=== PATIENT | female | born 1960 | race Caucasian/White ===

== ENCOUNTER 2018-02-20 06:40 | Day surgery (SDC) | payer OTHER ==
[2018-02-16 10:30] VITALS: BMI 24.0
[~2018-02-20 06:40] MED LIST: LACTATED RINGERS 1,000 ML IV SCH; LIDOCAINE 1% 20 ML VIAL (10MG/ML) FOR IV START INTRADERMA PRN
[2018-02-20 07:19] VITALS: TEMP 97.8
[2018-02-20] MEDS ORDERED: LACTATED RINGERS 1,000 ML IV ONE (07:21)
[2018-02-20] MEDS ORDERED: PROPOFOL 10 MG/ML 20 ML VIAL IV ONE (07:49)
[2018-02-20] MEDS ORDERED: LIDOCAINE 1% INJ 10MG/ML (20 ML MDV) ONE (07:49)
--- NOTE | 2018-02-20 07:56 | P.GSHP ---
History of Present Illness H&P Date: 02/20/18 Chief Complaint: Screening colonoscopy This is a 57-year-old female who presents today for screening colonoscopy. Her last colonoscopy was about 10 years ago. She denies a significant GI complaints Past Medical History Past Medical History: Hyperlipidemia, Hypertension Additional Past Medical History / Comment(s): migraines, "pre hypertension", varicose veins, osteoporosis, History of Any Multi-Drug Resistant Organisms: None Reported Past Surgical History: Section Additional Past Surgical History / Comment(s): varicose vein surgery left leg Past Anesthesia/Blood Transfusion Reactions: Motion Sickness Smoking Status: Former smoker - Past Family History Father Family Medical History: Cancer Medications and Allergies Home Medications Medication Instructions Recorded Confirmed Type Alendronate Sodium [Fosamax] 70 mg PO TH 01/02/18 02/16/18 History Aspirin [Adult Low Dose Aspirin EC] 81 mg PO DAILY 01/02/18 02/16/18 History Calcium Carbonate [Calcium] 900 mg PO BID 01/02/18 02/16/18 History Cholecalciferol [Vitamin D3] 2,000 unit PO DAILY 01/02/18 02/16/18 History Nadolol [Corgard] 20 mg PO HS 01/02/18 02/16/18 History Rizatriptan Odt [Maxalt Circulation Worker] 10 mg PO DIRECTED PRN 01/02/18 02/16/18 History Simvastatin 40 mg PO HS 01/02/18 02/16/18 History Allergies Allergy/AdvReac Type Severity Reaction Status Date / Time No Known Allergies Allergy Verified 02/16/18 10:26 Surgical - Exam Vital Signs Temp Pulse Resp BP Pulse Ox 97.8 F 67 18 156/97 99 02/20/18 07:18 02/20/18 07:18 02/20/18 07:18 02/20/18 07:18 02/20/18 07:18 - General well developed, no distress - Eyes PERRL - ENT normal pinna - Neck no masses - Respiratory normal expansion - Cardiovascular Rhythm: regular - Abdomen Abdomen: soft, non tender Assessment and Plan Plan: Perform screening colonoscopy.
--- NOTE | 2018-02-20 08:12 | P.OP ---
Date of Procedure: 02/20/18 Preoperative Diagnosis: Screening colonoscopy Postoperative Diagnosis: Normal colon Procedure(s) Performed: Colonoscopy Anesthesia: MAC Surgeon: Rick Ortiz Pathology: none sent Condition: stable Disposition: PACU Description of Procedure: PROCEDURE: The patient was placed on the endoscopy table in the lateral position. Digital rectal examination was performed which revealed no abnormalities. yun. Flexible colonoscope was then placed in the patient's anus and passed throughout the entire colon. The ileocecal valve was visualized. The cecum, ascending, transverse, descending and sigmoid colon were normal. The rectum was normal as well. There were no masses, polyps or diverticula noted in the entire colon. SUMMARY OF FINDINGS: Normal colonoscopy.
[2018-02-20 09:00] VITALS: BP 137/79; PULSE 57; RESP 18
== END 2018-02-20 09:44 | disposition home or self-care (01) ==
LOC: ORWHC2ENDO 06:40
PROVIDERS: ATTEND Surgery
DX: Z12.11 Encounter for screening for malignant neoplasm of colon (principal); I10 Essential (primary) hypertension; E78.5 Hyperlipidemia, unspecified; G43.909 Migraine, unspecified, not intractable, without status migrainosus; M81.0 Age-related osteoporosis without current pathological fracture; Z79.82 Long term (current) use of aspirin; Z79.899 Other long term (current) drug therapy; Z87.891 Personal history of nicotine dependence
CPT/HCPCS: J2001; J2704; G0121; 45378

== ENCOUNTER 2018-04-27 07:50 | Day surgery (SDC) | payer OTHER ==
[2018-04-25 17:39] VITALS: BMI 23.3
[~2018-04-27 07:50] MED LIST changes: +HYDROmorphone 0.5 MG/0.5 ML SYRINGE IVP PRN; -LIDOCAINE 1% 20 ML VIAL (10MG/ML) FOR IV START INTRADERMA PRN
[2018-04-27] MEDS ORDERED: LIDOCAINE 1% 20 ML VIAL (10MG/ML) FOR IV START INTRADERMA ONE (08:15)
[2018-04-27 08:20] VITALS: RESP 16; TEMP 98.2
[2018-04-27] MEDS ORDERED: LIDOCAINE 1% INJ 10MG/ML (20 ML MDV) ONE (09:14)
[2018-04-27] MEDS ORDERED: PROPOFOL 10 MG/ML 20 ML VIAL IV ONE (09:14)
[2018-04-27] MEDS ORDERED: GLUCAGON 1 MG/ML VIAL ONE (09:14)
--- NOTE | 2018-04-27 09:15 | P.GSHP ---
History of Present Illness H&P Date: 04/27/18 Chief Complaint: GI bleed This a 58-year-old female who presents today for colonoscopy. Patient had issues with intermittent rectal bleeding. Patient denies any blood yesterday with her prep. Past Medical History Past Medical History: Hyperlipidemia, Hypertension Additional Past Medical History / Comment(s): migraines, varicose veins, osteoporosis, States blood in stool History of Any Multi-Drug Resistant Organisms: None Reported Past Surgical History: Section Additional Past Surgical History / Comment(s): varicose vein surgery left leg, colonoscopy Past Anesthesia/Blood Transfusion Reactions: No Reported Reaction Past Psychological History: No Psychological Hx Reported Smoking Status: Former smoker Past Alcohol Use History: Rare Additional Past Alcohol Use History / Comment(s): quit smoking 2000, smoked for 25 yrs, 1 1/2 PPD Past Drug Use History: None Reported - Past Family History Father Family Medical History: Cancer Additional Family Medical History / Comment(s): lung cancer Medications and Allergies Home Medications Medication Instructions Recorded Confirmed Type Alendronate Sodium [Fosamax] 70 mg PO FR 01/02/18 04/27/18 History Aspirin [Adult Low Dose Aspirin EC] 81 mg PO DAILY 01/02/18 04/27/18 History Cholecalciferol [Vitamin D3] 2,000 unit PO DAILY 01/02/18 04/27/18 History Rizatriptan Odt [Maxalt Job Coach] 10 mg PO DIRECTED PRN 01/02/18 04/27/18 History Simvastatin 40 mg PO HS 01/02/18 04/27/18 History Bisoprolol-Hctz 5-6.25 mg [Ziac 1 each PO DAILY 04/25/18 04/27/18 History 5-6.25] Calcium Carbonate [Calcium] 1,500 mg PO DAILY 04/25/18 04/27/18 History Allergies Allergy/AdvReac Type Severity Reaction Status Date / Time No Known Allergies Allergy Verified 04/27/18 08:09 Surgical - Exam Vital Signs Temp Pulse Resp BP Pulse Ox 98.2 F 78 16 124/72 97 04/27/18 08:19 04/27/18 08:19 04/27/18 08:19 04/27/18 08:19 04/27/18 08:19 - General well developed, well nourished, no distress - Eyes PERRL - ENT normal pinna - Neck no masses - Respiratory normal expansion - Cardiovascular Rhythm: regular - Abdomen Abdomen: soft, non tender Assessment and Plan Assessment: GI bleed. We'll perform colonoscopy.
--- NOTE | 2018-04-27 09:47 | P.OP ---
Date of Procedure: 04/27/18 Preoperative Diagnosis: GI bleed Postoperative Diagnosis: Internal hemorrhoids Rectal biopsy pathology pending Procedure(s) Performed: Colonoscopy Anesthesia: MAC Surgeon: Rick Ortiz Pathology: other (Rectum) Condition: stable Disposition: PACU Description of Procedure: The patient's placed on the endoscopy table in the lateral position. She received IV sedation. Digital rectal exam was performed which revealed a few internal hemorrhoids. The flexible colonoscope was then placed patient anus passed throughout the entire colon. The ileocecal valve was visualized. The colon was in spasm. Glucagon was given. The cecum was visualized. Cecum appeared normal. The ascending colon, transverse colon and descending colon appeared noremal. Scope was then brought back the sigmoid colon this appeared normal. The scope was then brought back the rectum and a biopsies performed. The scope was then retroflexed and there were some internal hemorrhoids noted. The scope was withdrawn for patient. There was no evidence of any active GI bleed in the colon. There is no bright red blood or dark blood in the colon. It was thought that the patient's intermittent rectal bleeding may be due to internal hemorrhoids.
[2018-04-27 09:55] VITALS: BP 120/68; PULSE 80
== END 2018-04-27 10:37 | disposition home or self-care (01) ==
LOC: ORWHC2ENDO 07:50
PROVIDERS: ATTEND Surgery
DX: K92.2 Gastrointestinal hemorrhage, unspecified (principal); E78.5 Hyperlipidemia, unspecified; I10 Essential (primary) hypertension; K64.8 Other hemorrhoids; M81.0 Age-related osteoporosis without current pathological fracture; Z79.82 Long term (current) use of aspirin; Z87.891 Personal history of nicotine dependence; Z80.1 Family history of malignant neoplasm of trachea, bronchus and lung; Z79.899 Other long term (current) drug therapy
CPT/HCPCS: 88305; 45380; J1610; J2001; J2704

== ENCOUNTER → 2018-07-05 | Outpatient (CLI) | payer OTHER ==
--- NOTE | 2018-07-06 17:03 | MR ---
EXAMINATION TYPE: MR knee RT wo con DATE OF EXAM: 07/05/2018 COMPARISON: Outside radiographs 06/20/2018 HISTORY: 58 year-old female right knee pain TECHNIQUE: Multiplanar, multisequence imaging of the right knee is performed without IV contrast. FINDINGS: The ACL, PCL, and and MCL are intact. MCL complex remains intact. There is degenerative signal within the posterior horn and body of the medial meniscus. Signal extend s to contact the tibial surface at the junction of the posterior horn and body at least on one slice, series 301 sagittal image 8. There is mild diffuse cartilage thinning within the medial compartment with focal areas of superficial cartilage irregularity. There is a complex degenerative tear involving the posterior horn and body of the lateral meniscus. T ear extends to the junction of the anterior horn. Some displaced meniscal fragment is present along t he superior gutter, series 401 coronal image 16. There is severe loss of articular cartilage along th e tibial articular surface and moderate irregular cartilage loss along the femoral articular surface. Subchondral sclerosis and marginal spurring is demonstrated with cystic change. Moderate irregular cartilage loss throughout the patellofemoral compartment. There is a 6 mm anterior loose body. Extensor mechanism remains intact. There is a focus of metal artifact within the patella that could b e the sequela of prior surgery or trauma. No obvious metal is seen on the patient's outside radiograp hs. There is a moderate knee joint effusion with mild chronic synovitis in the leaking, mildly complex, m oderate sized Torres's cyst measuring 6.0 x 3.9 cm. Normal popliteal artery anatomy. Mild diffuse muscular atrophy. No suspicious bone marrow placement. IMPRESSION: 1. Moderate to severe lateral compartmental osteoarthrosis with a diffusely degenerative and torn pos terior horn and body of the lateral meniscus. Some displaced meniscal fragment is present along the s uperior gutter. 2. Degenerative signal within the medial meniscus with possible subtle tear at the junction of the po sterior horn and body. Mild overall degenerative change in the medial compartment. 3. Moderate overall patellofemoral compartment osteoarthrosis. 4. Moderate knee joint effusion with mild chronic synovitis. Moderate-sized leaking Torres's cyst is a lso present measuring up to 6.0 cm.
== END | disposition home or self-care (01) ==
LOC: RADMRIMAIN 11:11
PROVIDERS: ATTEND Orthopaedic Surgery
DX: S83.281A Other tear of lateral meniscus, current injury, right knee, initial encounter (principal); M17.11 Unilateral primary osteoarthritis, right knee; M65.88 Other synovitis and tenosynovitis, other site

== ENCOUNTER → 2018-07-13 | Outpatient (CLI) | payer OTHER ==
[2018-07-13 12:39] LABS: Potassium 4.4 mmol/L (3.5-5.1)
[2018-07-13 13:09] LABS: HCT 43.2 % (34.0-46.0); HGB 13.9 gm/dL (11.4-16.0); MCH 29.9 pg (25.0-35.0); MCHC 32.1 g/dL (31.0-37.0); MCV 93.1 fL (80.0-100.0); Mean Platelet Volume 7.6; Platelet Count 222 k/uL (150-450); RBC 4.64 m/uL (3.80-5.40); RDW 13.4 % (11.5-15.5); WBC 5.9 k/uL (3.8-10.6)
[2018-07-13 13:54] LABS: Eosinophils # (M) 0.24 k/uL (0-0.7); Lymphocytes # (M) 1.36 k/uL (1.0-4.8); Monocytes # (M) 0.41 k/uL (0-1.0); Neutrophils # (M) 3.89 k/uL (1.3-7.7); Neutrophils % (M) 66 %; Nucleated Red Blood Cells 0 /100 WBC (0-0); Total Cells Counted 100
== END | disposition home or self-care (01) ==
LOC: LABPAT 11:50
PROVIDERS: ATTEND Orthopaedic Surgery
DX: Z01.818 Encounter for other preprocedural examination (principal); M23.91 Unspecified internal derangement of right knee; Z01.812 Encounter for preprocedural laboratory examination
CPT/HCPCS: 80051; 85025; 93005

== ENCOUNTER 2018-08-02 08:45 | Day surgery (SDC) | payer OTHER ==
--- NOTE | 2018-08-01 13:40 | HP ---
HISTORY AND PHYSICAL Surgery is 08/02/2018. Edel Bates is a 58-year-old patient seen with progressive right knee pain. We discussed options. She elected to proceed with arthroscopy. Consent was obtained. PAST MEDICAL HISTORY: Her past medical history is hypertension, hyperlipidemia. PAST SURGICAL HISTORY: section. DAILY MEDICATIONS: 1. Bisoprolol/hydrochlorothiazide. 2. Simvastatin. ALLERGIES: Allergies are none. SOCIAL HISTORY: She denies current tobacco use. PHYSICAL EXAMINATION: Physical evaluation of the right knee: Her range of motion is -2 to 115 degrees. Mild to moderate effusion. Tenderness along the medial and lateral joint lines. Positive medial Merle's. Positive lateral Merle's. Crepitus medial and patellofemoral compartments. Ligaments stable. Hip rotation without pain. Distal neurovascular exam intact. Radiographs of the right knee revealed osteoarthritic changes. Right knee MRI revealed lateral meniscal tear and osteoarthritic changes. IMPRESSION: 1. Internal derangement right knee with lateral meniscal tear. 2. Hypertension. 3. Hyperlipidemia. PLAN: Right knee arthroscopy with partial meniscectomy and debridement. MMODL / IJN: [id number] /
[~2018-08-02 08:45] MED LIST changes: +DEXAMETHASONE SOD PHOSPHATE 10 MG/ML 1 ML VIAL IV ONE; -HYDROmorphone 0.5 MG/0.5 ML SYRINGE IVP PRN; +LIDOCAINE 1% 20 ML VIAL (10MG/ML) FOR IV START INTRADERMA PRN; +MIDAZOLAM 2 MG/2 ML VIAL IV PRN; +ONDANSETRON 4 MG/2 ML VIAL IVP ONE; +SCOPOLAMINE 1.5MG/72HR PATCH TRANSDERM ONE
[2018-08-02] MEDS ORDERED: FAMOTIDINE 20 MG/2 ML VIAL IVP ONE (09:23)
[2018-08-02] MEDS ORDERED: MIDAZOLAM 2 MG/2 ML VIAL ONE (09:44)
[2018-08-02] MEDS ORDERED: fentaNYL (PF) 50 MCG/ML 2 ML AMP ONE (09:44)
[2018-08-02] MEDS ORDERED: SUCCINYLCHOLINE CHLORIDE 100 MG/5 ML SYR IV ONE (09:44)
[2018-08-02] MEDS ORDERED: LIDOCAINE 1% INJ 10MG/ML (20 ML MDV) ONE (09:44)
[2018-08-02] MEDS ORDERED: PROPOFOL 10 MG/ML 20 ML VIAL IV ONE (09:44)
[2018-08-02] MEDS ORDERED: BUPIVACAIN-EPI 0.5%-1:200,000 30 ML VIAL INTRAARTIC ONE (09:59)
[2018-08-02 10:50] VITALS: TEMP 96.8
--- NOTE | 2018-08-02 10:53 | P.OP ---
Date of Procedure: 08/02/18 Preoperative Diagnosis: Internal derangement right knee Postoperative Diagnosis: 1. Tear lateral meniscus right knee 2. Grade 4 chondromalacia lateral femoral condyle right knee 3. Grade 2/3 chondromalacia medial femoral condyle right knee 4. Reactive synovitis medial, lateral and suprapatellar compartments right knee Procedure(s) Performed: 1. Arthroscopic partial lateral meniscectomy right knee 2. Arthroscopic chondroplasty lateral femoral condyle right knee 3. Arthroscopic microfracture lateral femoral condyle right knee 4. Arthroscopic chondroplasty medial femoral condyle right knee 5. Arthroscopic partial synovectomy medial, lateral and suprapatellar compartments right knee Anesthesia: TIMA, local Surgeon: Prince Iraheta Estimated Blood Loss (ml): 8 Pathology: none sent Condition: stable Disposition: PACU Indications for Procedure: 58-year-old patient seen with progressive right knee pain. After having treatment options discussed, she elected to proceed with arthroscopy. Operative Findings: See description of procedure Description of Procedure: Patient was taken to the operative suite. Patient underwent a general anesthetic by the department of anesthesia. Patient was given preoperative a ntibiotics. The right lower extremity was placed in a well-padded arthroscopic leg montalvo. The right leg was prepped and draped in the normal sterile orthopedic fashion. A lateral parapatellar and suprapatellar incision was made. Trochars were inserted. Arthroscopy was initiated. Suprapatellar pouch revealed diffuse thick reactive synovitis. The patellofemoral joint appeared to articulate congruently. There was grade 2 chondromalacia over the patellofemoral joint. The scope was guided into the medial gutter. No loose bodies or plica were identified. The scope was then guided into the medial compartment. A medial parapatellar incision was made. Trocar inserted followed by probe. There was some fraying superficially posterior horn medial meniscus. There were grade 2/3 chondromalacia changes of the medial femoral condyle with some osteochondral tears present. There was thick reactive synovitis anteriorly. I debrided that superficial fraying with a motorized shaver. I per formed a chondroplasty of the medial femoral condyle down to stable tissue. I performed a partial synovectomy decompressing the thick reactive synovitis. The residual osteochondral surface was stable. There was good decompression of synovitis. Scope and probe were then guided into the intercondylar notch. Cruciates were identified, probed and found to be stable. The scope and probe were then guided into lateral compartment. There was a complex tear of the lateral meniscus involving the mid body and posterior horn. There were grade 4 chondral moist changes of the lateral femoral condyle with some bony exposure and grade 4 chondromalacia of the tibial plateau with some bony exposure. There was thick reactive synovitis anteriorly. I performed a partial lateral meniscectomy getting down to stable tissue. I performed a chondroplasty of the lateral femoral condyle and then a partial synovectomy decompressing reactive synovitis. I performed a microfracture to the lateral femoral condyle penetrating the bone with resultant bleeding at the microfracture site. The residual meniscus was stable. There was good decompression of synovitis. The scope was in guided back into the suprapatellar compartment. I introduced a motorized shaver into the suprapatellar compartment. I debrided piecemeal fragments of meniscus I encountered. I performed a partial synovectomy. Shaver was removed. It was good decompression of synovitis. I took one more look on the entire knee, no residual debris. Instruments were now removed from the joint. The joint was infiltrated with .25% Marcaine. Steri-Strips were applied to the portal sites. Sterile dressings were applied. The patient was placed into a MARY KATE hose. No tourniquet was utilized. The patient was awakened, transferred to a bed and taken to recovery stable satisfactory condition.
[2018-08-02] MEDS: HYDROmorphone 0.5 MG/0.5 ML SYRINGE IVP PRN ×2 (10:55→11:00)
[2018-08-02] MEDS ORDERED: MEPERIDINE 50 MG/ML SYRINGE IVP ONE (11:12)
[2018-08-02 12:10] VITALS: RESP 18
[2018-08-02 12:30] VITALS: BP 110/72; PULSE 60
== END 2018-08-02 13:08 | disposition home or self-care (01) ==
LOC: OR 08:45
PROVIDERS: ATTEND Orthopaedic Surgery
DX: M23.351 Other meniscus derangements, posterior horn of lateral meniscus, right knee (principal); M23.361 Other meniscus derangements, other lateral meniscus, right knee; M94.261 Chondromalacia, right knee; M65.861 Other synovitis and tenosynovitis, right lower leg; I10 Essential (primary) hypertension; E78.5 Hyperlipidemia, unspecified; Z79.899 Other long term (current) drug therapy
CPT/HCPCS: 29881; 29879; J2250; J1100; J2175; J2405; J0690; J2001; J3010; J0330; J2704; J1170

== ENCOUNTER → 2019-01-15 | Outpatient (CLI) | payer OTHER ==
--- NOTE | 2019-01-16 00:12 | MR ---
EXAMINATION TYPE: MR brain wo/w con DATE OF EXAM: 01/15/2019 COMPARISON: None HISTORY: Headaches TECHNIQUE: Multiplanar, multisequence images of the brain and brainstem is performed without and with IV contras t, utilizing 6.5 mL intravenous Gadavist . FINDINGS: Ventricles and sulci appear fairly normal. There is no mass effect nor midline shift. There is no evidence of intracranial hemorrhage. I see no evidence of cerebral edema. There is no evidence of cortical infarct. Corpus callosum appears normal. Brainstem is intact. Sella turcica appears normal. Contrast images show no pathologic enhancement. There is normal contrast opacification of the venous sinuses. IMPRESSION: Negative MR scan of the brain. Exam is normal for age.
== END ==
LOC: RADMRIMAIN 18:59
PROVIDERS: ATTEND Family Medicine
DX: G43.901 Migraine, unspecified, not intractable, with status migrainosus (principal)
CPT/HCPCS: 70553; A9585

== ENCOUNTER → 2019-08-08 | Outpatient (CLI) | payer OTHER | END | disposition home or self-care (01) | LOC: LABWHC1 11:33 | PROVIDERS: ATTEND Internal Medicine Gastroenterology | DX: Z11.59 Encounter for screening for other viral diseases (principal) | CPT/HCPCS: 87635 ==

== ENCOUNTER 2019-08-10 09:48 | Day surgery (SDC) | payer OTHER ==
[2019-08-09 09:25] VITALS: BMI 23.6
[~2019-08-10 09:48] MED LIST changes: -DEXAMETHASONE SOD PHOSPHATE 10 MG/ML 1 ML VIAL IV ONE; +LIDOCAINE 1% (10MG/ML) FOR IV START INTRADERMA PRN; -LIDOCAINE 1% 20 ML VIAL (10MG/ML) FOR IV START INTRADERMA PRN; -MIDAZOLAM 2 MG/2 ML VIAL IV PRN; -ONDANSETRON 4 MG/2 ML VIAL IVP ONE; -SCOPOLAMINE 1.5MG/72HR PATCH TRANSDERM ONE
[2019-08-10 10:16] VITALS: TEMP 98.1
[2019-08-10] MEDS ORDERED: PROPOFOL 10 MG/ML 20 ML VIAL IV ONE (12:06)
--- NOTE | 2019-08-10 12:32 | P.PCN ---
Date of Procedure: 08/10/19 Procedure(s) Performed: BRIEF HISTORY: Patient is a 59-year-old pleasant white female scheduled for an elective colonoscopy as a part of evaluation of rectal bleeding with rectal urgency and mucus in the stool on and off for the last 1 year duration. PROCEDURE PERFORMED: Colonoscopy with biopsy and tattooing with Catrachita ink PREOPERATIVE DIAGNOSIS: Rectal urgency and rectal bleeding of 1 year duration. IV sedation per Anesthesia. PROCEDURE: After informed consent was obtained, the patient, was brought into the endoscopy unit. IV sedation was administered by Anesthesia under continuous monitoring. Digital rectal examination was normal. Initially the Olympus CF-160 flexible video colonoscope was then inserted in the rectum, gradually advanced into the cecum. Careful examination was performed as the scope was gradually being withdrawn. Because of the cecum, ascending colon and transverse colon descending colon, appeared normal. There was a ulcerated mass noted in the distal sigmoid colon at 24 cm from the anal verge extending up to 30 cm from the anal verge and multiple biopsies were done from this area. Tattooing was performed with Catrachita ink at the distal margin of the ulcerated mass. The sigmoid colon, and rectum appeared normal. Retroflexion was performed in the rectum and no lesions were seen. The patient tolerated the procedure well. IMPRESSION: N Ulcerated mass in the distal sigmoid colon extending from 24-30 cm from the anal verge status post multiple biopsies Rest of the colon appeared normal RECOMMENDATIONS: Findings of this examination were discussed with the patient as well as a family. She was advised to follow with the biopsy results. She will be seen in office in a week from now. In the meantime she will be scheduled for a CT of abdomen and pelvis.
[2019-08-10 12:54] VITALS: BP 123/78; PULSE 90; RESP 18
== END 2019-08-10 13:47 | disposition home or self-care (01) ==
LOC: ORWHC2ENDO 09:48
PROVIDERS: ATTEND Internal Medicine Gastroenterology
DX: C18.7 Malignant neoplasm of sigmoid colon (principal); I10 Essential (primary) hypertension; E78.5 Hyperlipidemia, unspecified; Z97.2 Presence of dental prosthetic device (complete) (partial); G43.909 Migraine, unspecified, not intractable, without status migrainosus; Z79.899 Other long term (current) drug therapy
CPT/HCPCS: 88305; 45380; 45381; J2704

== ENCOUNTER → 2019-08-14 | Outpatient (CLI) | payer OTHER ==
--- NOTE | 2019-08-14 10:23 | CT ---
EXAMINATION TYPE: CT abdomen pelvis w con DATE OF EXAM: 08/14/2019 HISTORY: Sigmoid colonic mass per patient. CT DLP: 386mGycm Automated Exposure Control for Dose Reduction was Utilized. CONTRAST: CT scan of the abdomen and pelvis is performed with IV Contrast, patient injected with 100 mL of Isov ue 300. COMPARISON: None. FINDINGS: LUNG BASES: No significant abnormality is appreciated. LIVER/GB: Right hepatic lobe mass measures 4.7 x 6.8 cm and demonstrates peripheral nodular enhanceme nt with near complete filling on the delayed sequence. Too small to accurately characterize hepatic l esion near the intrahepatic inferior vena cava on delayed image 12 measures 5 mm. There is mild backg round hepatic steatosis limiting evaluation for hepatic masses. Hypoattenuated lesion adjacent to the large index mass on series 3 image 16 measures 8 mm in a subcapsular location and is less apparent o n delayed images, possible hemangioma. Left hepatic lobe lesion on image 22 measures 6 mm and is too small to accurately characterize on this examination. Linear hypoattenuated area may represent more f ocal fatty infiltration near the fissure for the falciform ligament on image 28. Markedly hypointense possible cysts are seen on image 33 measuring 9 mm and 7 mm. No radiopaque calculi in the gallbladde r. PANCREAS: No significant abnormality is seen. SPLEEN: No splenomegaly. ADRENALS: No nodularity or thickening. KIDNEYS: Kidneys enhance and excrete symmetrically without hydronephrosis. BOWEL: There is focal hyperemia in bowel wall thickening of the sigmoid colon located approximately 1 0 cm from the anal verge measuring a distance of approximately 8.3 cm. No proximal dilated bowel to t his to suggest obstruction. Moderate degree colonic fecal stasis. No dilated small bowel. LYMPH NODES: There are a few clustered suspicious hyperdense lymph nodes on coronal image 54 and axia l image 59 as well as 58. These measure up to 8 mm. No greater than 1cm abdominal or pelvic lymph nod es are appreciated. OSSEOUS STRUCTURES: Schmorl's node is seen of the superior endplate of T11. Degenerative changes are most pronounced at L5-S1. OTHER: Mild atherosclerosis of the abdominal aorta and its branches. IMPRESSION: 1. Sigmoid colonic wall thickening and hyperemia likely correspond to the patient's known sigmoid mas s. This measures approximately 8.3 cm in length and begins approximately 10 cm from the anal verge. N o evidence of obstruction at this time. Few clustered suspicious mesenteric lymph nodes are seen anthony cent to the sigmoid colon as described above. 2. Multiple hepatic lesions on a background of mild degree hepatic steatosis. The largest is most com patible on CT with a benign hemangioma, some smaller lesions are possible hemangiomas and cysts, and some lesions are too small to accurately characterize. Given the variable appearance of these masses in the patient's history of sigmoid colonic mass MRI liver is recommended to provide more definitive characterization.
== END ==
LOC: RADCTMAIN 07:06
PROVIDERS: ATTEND Internal Medicine Gastroenterology
DX: K59.8 Other specified functional intestinal disorders (principal); K63.89 Other specified diseases of intestine; K76.0 Fatty (change of) liver, not elsewhere classified; K76.89 Other specified diseases of liver
CPT/HCPCS: 74177; Q9967

== ENCOUNTER → 2019-08-16 | Outpatient (CLI) | payer OTHER ==
--- NOTE | 2019-08-16 14:35 | MR ---
EXAMINATION TYPE: MR abdomen wo/w con DATE OF EXAM: 08/16/2019 COMPARISON: CT abdomen and pelvis dated 08/14/2019 HISTORY: Mass seen on CT. Abnormal CT of 08/14/2019. Sigmoid colonic mass. CONTRAST: Standard multiplanar, multisequence MRI departmental protocol utilizing 6.5 mL intravenous Gadavist g adolinium contrast. FINDINGS: Numerous hepatic lesions are redemonstrated. The previously seen mild degree hepatic steato sis is not seen on MRI as there is no significant signal dropout on out of phase imaging in compariso n to in phase imaging. The first and largest hepatic lesion displays progressive peripheral nodular discontinuous centripeta l enhancement and near complete fill-in on 9 minute delayed imaging compatible with a hemangioma. Thi s measures up to 6.5 x 4.4 cm and is T2 hyperintense and T1 hypointense. Directly anterior to this in segment 8 of the liver there is a similar-appearing 1.2 cm lesion that also demonstrates progressive peripheral centripetal filling near complete on delayed imaging also compatible with a hemangioma. T his is T2 hyperintense. There are 3 definitive cysts within the liver. The first measures 1 cm in seg ment IVb without enhancement, the second measures 6 mm in segment IVb without enhancement and a third is punctate also in segment IVb. Within the left hepatic lobe there is a probable additional hemangi carla that is T2 hyperintense and T1 hypointense demonstrating peripheral centripetal enhancement measu ring 8 mm. The adrenal glands are unremarkable morphology and enhancement as are the kidneys and the pancreas as well as the spleen. No dilated large or small bowel. Abdominal aorta is of normal course and caliber . No pathologic adenopathy seen in the abdomen. IMPRESSION: The largest hepatic lesion an adjacent smaller lesion both have MR characteristics of he mangiomas. There are 3 definitive hepatic cysts. However there is one 8mm lesion in the left hepatic lobe that has characteristics of a probable hemangioma. Surveillance is recommended for this solitary subcentimeter lesion to ensure stability.
== END | disposition home or self-care (01) ==
LOC: RADMRIMAIN 12:07
PROVIDERS: ATTEND Internal Medicine Gastroenterology
DX: K76.89 Other specified diseases of liver (principal)
CPT/HCPCS: 74183; A9585

== ENCOUNTER → 2019-08-24 | Outpatient (CLI) | payer OTHER ==
[2019-08-24 12:34] LABS: HCT 41.5 % (34.0-46.0); HGB 13.7 gm/dL (11.4-16.0); MCH 30.8 pg (25.0-35.0); MCHC 33.1 g/dL (31.0-37.0); Mean Platelet Volume 7.7; Platelet Count 236 k/uL (150-450); RBC 4.46 m/uL (3.80-5.40); RDW 13.3 % (11.5-15.5); WBC 7.8 k/uL (3.8-10.6)
[2019-08-25 00:15] LABS: African American GFR (CKD) 108.4 (60.0-200.0); Albumin 4.1 g/dL (3.80-4.90); Albumin/Globulin Ratio 2.28 (1.60-3.17); Anion Gap 2.8 mmol/L (4.00-12.00); BUN/Creat Ratio 28.57 Ratio (12.00-20.00); Calcium 9.3 mg/dL (8.7-10.3); Carbon Dioxide 31.2 mmol/L (21.6-31.8); Globulin 1.8 g/dL (1.6-3.3); Non-African American GFR(CKD) 93.5 (60.0-200.0); Potassium 4.4 mmol/L (3.5-5.5); Total Bilirubin 0.5 mg/dL (0.2-1.2); Total Protein 5.9 g/dL (6.2-8.2)
== END | disposition home or self-care (01) ==
LOC: LABWHC1 10:23
PROVIDERS: ATTEND Surgery Plastic and Reconstructive Surgery
DX: Z01.812 Encounter for preprocedural laboratory examination (principal)
CPT/HCPCS: 36415; 80053; 85027

== ENCOUNTER 2019-08-31 07:17 | Inpatient (IN) | payer OTHER ==
[2019-08-28 10:23] VITALS: BMI 22.9
--- NOTE | 2019-08-30 22:05 | P.GSHP ---
History of Present Illness H&P Date: 08/31/19 CHIEF COMPLAINT: History of sigmoid colon cancer HISTORY OF PRESENT ILLNESS: The patient is a 59-year-old female with long- standing history of chronic constipation including large bowel obstruction secondary to sigmoid colon cancer. Now she presents for sigmoid colon resection. PAST MEDICAL HISTORY: Please see list. PAST SURGICAL HISTORY: Please see list. MEDICATIONS: Please see list. ALLERGIES: Please see list. SOCIAL HISTORY: No illicit drug use FAMILY HISTORY: No reports of Crohn disease or ulcerative colitis. REVIEW OF ORGAN SYSTEMS: CONSTITUTIONAL: Denies any fever or chills. HEENT: Denies any trouble with vision or nosebleeds. No difficulty swallowing. LYMPHATIC: The patient denies any lumps and bumps around the neck. ENDOCRINE: Denies any thyroid disorders. Has blood sugar glucose intolerance. RESPIRATORY: Denies pneumonia. Denies any troubles with breathing or dyspnea on exertion. CARDIOVASCULAR: Denies any chest pain, palpitations, or recent heart attacks. GASTROINTESTINAL: Has constipation and recent colonoscopy GENITOURINARY: Has increased urinary frequency. MUSCULOSKELETAL: Has back pain, stiffness, joint arthritis. NEUROLOGIC: Denies any numbness or tingling along the distal extremities. No seizure disorders or headaches. PSYCHIATRIC: Denies depression or suidical ideation. HEMATOLOGIC: Denies any abnormal bleeding or bruising. PHYSICAL EXAM: VITAL SIGNS: Stable GENERAL: Well-developed pleasant in no acute distress. HEENT: No scleral icterus. Extraocular movements grossly intact. Moist buccal mucosa. NECK: Supple without lymphadenopathy. CHEST: Unlabored respirations. Equal bilateral excursions. CARDIOVASCULAR: Regular rate and rhythm. Distal 2+ pulses. ABDOMEN: Soft, nontender, nondistended. MUSCULOSKELETAL: No clubbing, cyanosis, or edema. NERUO: Cranial nerves 2-12 grossly intact. PSYCH: Alert and oriented to person place and time. ASSESSMENT: 1. Sigmoid colon cancer PLAN: 1. Benefits and risks of surgical intervention for sigmoid resection reviewed in detail. Robotic-assisted approach was also described. 2. She has completed an enhanced colon recovery program. 3. DVT prophylaxis. 4. Antibiotic prophylaxis. Past Medical History Past Medical History: Cancer, Hyperlipidemia, Hypertension Additional Past Medical History / Comment(s): Migraines. Varicose veins. Osteoporosis, colon cancer History of Any Multi-Drug Resistant Organisms: None Reported Past Surgical History: Section Additional Past Surgical History / Comment(s): Varicose vein surgery left leg. Colonoscopy Past Anesthesia/Blood Transfusion Reactions: No Reported Reaction Smoking Status: Former smoker - Past Family History Father Family Medical History: Cancer Additional Family Medical History / Comment(s): lung cancer Medications and Allergies Home Medications Medication Instructions Recorded Confirmed Type Cholecalciferol [Vitamin D3] 2,000 unit PO DAILY 01/02/18 08/28/19 History Rizatriptan Odt [Maxalt Studio Camera Operator] 10 mg PO DIRECTED PRN 01/02/18 08/28/19 History Simvastatin 40 mg PO HS 01/02/18 08/28/19 History Calcium Carbonate [Calcium] 1,500 mg PO DAILY 04/25/18 08/28/19 History Metoprolol Tartrate [Lopressor] 25 mg PO BID 07/28/18 08/28/19 History Magnesium 500 mg PO DAILY 08/09/19 08/28/19 History [place]-3 Fatty Acids/Fish Oil [Fish 1 each PO DAILY 08/09/19 08/28/19 History Oil 1,000 mg Softgel] Ondansetron HCl [Zofran] 8 mg PO TID PRN 08/09/19 08/28/19 History Allergies Allergy/AdvReac Type Severity Reaction Status Date / Time No Known Allergies Allergy Verified 08/28/19 10:16
[~2019-08-31 07:17] MED LIST changes: +ACETAMINOPHEN TAB 500 MG TAB PO ONE; +ALVIMOPAN 12 MG CAPSULE PO ONE; +Antibiotics per Pharmacy 1 EACH MISC MISCELLANE PRN; +DEXAMETHASONE SOD PHOSPHATE 10 MG/ML 1 ML VIAL IV ONE; +HEPARIN SODIUM,PORCINE 5,000 UNIT/ML 1 ML VIAL SQ ONE; +HYDROmorphone 0.5 MG/0.5 ML SYRINGE IVP PRN; -LACTATED RINGERS 1,000 ML IV SCH; +MELOXICAM 7.5 MG TAB PO ONE; +MIDAZOLAM 2 MG/2 ML VIAL IV PRN; +ONDANSETRON 4 MG/2 ML VIAL IVP ONE; +TEMAZEPAM 15 MG CAP PO PRN; +fentaNYL (PF) 50 MCG/ML 2 ML AMP IV PRN; +metroNIDAZOLE-NS PMX 500 MG in SALINE 1 100ML.BAG IVPB ONE
[2019-08-31] MEDS: LACTATED RINGERS 1,000 ML IV SCH (08:17)
[2019-08-31 08:29] LABS: African American GFR (CKD) >90 (>60 ml/min/1.73 sqM); Albumin 4.2 g/dL (3.5-5.0); Anion Gap 8 mmol/L; Blood Urea Nitrogen 6 mg/dL (7-17); Calcium 9.4 mg/dL (8.4-10.2); Carbon Dioxide 27 mmol/L (22-30); Chloride 107 mmol/L (98-107); Glucose 101 mg/dL (74-99); Non-African American GFR(CKD) >90 (>60 ml/min/1.73 sqM); Potassium 3.8 mmol/L (3.5-5.1); Sodium 142 mmol/L (137-145); Total Bilirubin 0.6 mg/dL (0.2-1.3)
[2019-08-31 08:30] LABS: ALT 18 U/L (4-34); AST 27 U/L (14-36); Alkaline Phosphatase 63 U/L (38-126)
[2019-08-31 08:54] LABS: HCT 43.8 % (34.0-46.0); HGB 14.4 gm/dL (11.4-16.0); MCHC 32.8 g/dL (31.0-37.0); MCV 91.7 fL (80.0-100.0); Mean Platelet Volume 7.6; Platelet Count 239 k/uL (150-450); RBC 4.78 m/uL (3.80-5.40); RDW 13.5 % (11.5-15.5)
[2019-08-31 09:01] LABS: INR 1.1 (<1.2); Partial Thromboplastin Time 23.2 sec (22.0-30.0); Prothrombin Time 10.9 sec (9.0-12.0)
[2019-08-31] MEDS ORDERED: ONDANSETRON 4 MG/2 ML VIAL IVP PRN (09:21)
[2019-08-31] MEDS ORDERED: diphenhydrAMINE 50 MG/ML 1 ML VIAL IVP PRN (09:21)
[2019-08-31] MEDS ORDERED: NALOXONE 0.4 MG/ML 1 ML VIAL IV PRN (09:21)
[2019-08-31] MEDS ORDERED: PHENYLEPHRINE-0.9% NACL SYG 1 MG/10 ML SYRINGE ONE (09:22)
[2019-08-31] MEDS ORDERED: LIDOCAINE 1% INJ 10MG/ML (20 ML MDV) ONE (09:22)
[2019-08-31] MEDS ORDERED: MIDAZOLAM 2 MG/2 ML VIAL ONE (09:22)
[2019-08-31] MEDS ORDERED: fentaNYL (PF) 50 MCG/ML 2 ML AMP ONE (09:22)
[2019-08-31] MEDS ORDERED: PROPOFOL 10 MG/ML 20 ML VIAL IV ONE (09:22)
[2019-08-31] MEDS ORDERED: ROCURONIUM BROMIDE 10 MG/ML 5 ML VIAL IV ONE (09:22)
[2019-08-31] MEDS ORDERED: ONDANSETRON 4 MG/2 ML VIAL ONE (09:22)
[2019-08-31] MEDS ORDERED: BUPIVACAIN-EPI 0.25%-1:200,000 30 ML VIAL SQ ONE (09:27)
[2019-08-31 09:37] LABS: Band Neutrophils % 1 %; Basophils # (M) 0.06 k/uL (0-0.2); Eosinophils # (M) 0.12 k/uL (0-0.7); Lymphocytes # (M) 1.74 k/uL (1.0-4.8); Monocytes # (M) 0.36 k/uL (0-1.0); Neutrophils % (M) 61 %; Nucleated Red Blood Cells 0 /100 WBC (0-0); Total Cells Counted 100
[2019-08-31 09:38] LABS: Anisocytosis (M) Present
--- NOTE | 2019-08-31 09:39 | P.HPADDEND ---
H&P Addendum H&P Addendum Date: 08/31/19 Patient seen and evaluated. Patient has sigmoid colon cancer. Benefits and risks of robotic sigmoid colectomy described including possibility of open technique. Possibility of colostomy creation also reviewed.
[2019-08-31] MEDS ORDERED: LACTATED RINGERS 1,000 ML IV ONE ×2 (10:05→11:22)
[2019-08-31] MEDS ORDERED: HYDROmorphone 1 MG/ML 1 ML SYRINGE IVP PRN (12:56)
[2019-08-31] MEDS ORDERED: SUMAtriptan SUCCINATE 50 MG TAB PO PRN (13:10)
--- NOTE | 2019-08-31 13:12 | P.OP ---
Date of Procedure: 08/31/19 Description of Procedure: SURGEON: CEE BEAN MD PREOPERATIVE DIAGNOSES: 1. Sigmoid colon cancer 2. Liver hemangioma 3. Hypertensive heart disease without heart failure 4. Hyperlipidemia 5. Osteoporosis 6. Migraines POSTOPERATIVE DIAGNOSES: 1. Sigmoid colon cancer 2. Liver hemangioma 3. Hypertensive heart disease without heart failure 4. Hyperlipidemia 5. Osteoporosis 6. Migraines 7. Neoplasms to the liver, metastatic disease OPERATION: 1. Robotic-assisted daVinci Xi laparoscopic with sigmoid colectomy and low anterior resection using Ethicon 29 mm EEA powered stapler 2. Intraoperative colonoscopy for flexible sigmoidoscopy Anesthesia: GETA, local, epidural Estimated Blood Loss (ml): 30 Pathology: other (1. Sigmoid colon 2. Sigmoid colon lymph node 3. Anastomosis 4. Doughnuts for EEA) Condition: stable COMPLICATIONS: None. Operative Findings: 1. Superficial metastatic lesions along the liver: Left lobe, 2 right lobe including dome of liver 2. More than 5 cm resection from tattoo dye confirmed with colonoscopy 3. No contamination during the case 4. Anastomosis performed using Ethicon powered 29 mm ILS stapler 5. Flexible sigmoidoscopy demonstrates no leak 6. Multiple enlarged lymph nodes sigmoid mesentery resected INDICATIONS: The patient is a 59-year-old female with history of sigmoid colon cancer. Metastatic workup demonstrated a questionable lesions along the liver. Prior colonoscopy was performed with tattoo of the area of concern. Surgical intervention was described. Benefits and risks, including infection, bowel injury, ureteral injury, colostomy creation and possibility for additional surgery was discussed at length. Informed consent was obtained. All questions of the patient and family were answered. DESCRIPTION: Earlier the patient had undergone a bowel prep using the enhanced colon recovery program. The patient was transferred to the operating room onto a split leg table and repositioned to modified lithotomy following intubation. A Sheppard catheter was placed. The abdomen was then prepped and draped in standard sterile fashion as Ioban was placed along the abdomen to minimize any contamination of skin floor. After a timeout protocol was performed, attention was then brought to the left upper quadrant whereby a 0 degree 5 mm laparoscopic trocar entry was performed. The abdominal cavity was entered and insufflated to 15 mmHg pressure, which was tolerated well. Diagnostic laparoscopy demonstrated metastatic lesions along the anterior surface of the liver including 2 superficial lesions along the right liver and one lesion along the left lobe of the liver. Next trocars were placed 20 cm superior from the pelvis. A 12-mm trocar was placed along the right lateral abdominal wall. A 8 mm port was placed along the right upper quadrant. Ports were placed 8 cm apart from each other including 15-20 cm away from the target anatomy of the left pelvis. The 5-mm port was exchanged for an 8 mm robotic port. The stapler 12-mm port was arranged along the left lateral abdominal wall. The patient was then placed in Trendelenburg position, at least 16. The robotic da Stewart XI system was primed. The robot was docked from the right side of the patient. Using atraumatic graspers and vessel sealer, the robotic system was docked and primed as described. Instruments were interchanged by the assistant professor of anthropology including needle otr tanker truck driver, clip telecommunication engineer, hook cautery, robotic stapler and vessel sealer. The robot stapler was prepared along the right lateral abdominal wall. Next, attention was brought to identify the sigmoid colon. A highly redundant sigmoid colon was identified with the tumor within the deep pelvis. Using a ruler, 5 cm proximal to the bulk of the tumor, 3-0 silk was placed along the anterior serosa. The sigmoid mesentery was mobilized using a vessel sealer. Using multiple fires of the robot stapler 60 mm blue loads, the descending colon was divided. Mobilization of the colon was performed to the pelvic brim along the sacral promontory. The mesentery of the sigmoid colon was mobilized towards the descending colon using a vessel sealer. A solitary sigmoid colon lymph node was resected at least 1 cm in size. Prior to distal resection, an intraoperative flexible sigmoidoscopy was performed using a colonoscopy. I went to the foot of the bed for selection of a sizer. A colorectal colon anastomosis with an ILS 29 was selected after using a sizer along the rectum. I re-scrubbed into the case. Next, the top of the rectum was divided using robotic stapler 60 mm black loads. The rest of the sigmoid colon mesentery was mobilized using vessel sealer. For the descending colon, a 29-mm anvil was placed after creating a colotomy then closed using a 60-mm blue robotic stapler at the distal end. The robot arms were temporarily undocked. A stapler was entered along the rectum and mated to the anvil for 1 minute. The anastomosis was created. The donuts were thick on both sides. I then performed a bedside flexible sigmoidoscopy where no leaks or defects were confirmed as the assistant professor of anthropology placed normal saline along the pelvis. I re-scrubbed into the case. Irrigation fluid was suctioned from the abdomen. The robot was undocked. All needles were removed from the abdominal cavity. Via the stapler site 12-mm left upper quadrant, specimens were removed including the resected colon using 15 mm Endo Catch bag. The specimen was brought out through the 12 mm trocar of the left upper quadrant after widening the skin incision to 4-cm. The fascial defect was oversewn using 0 Vicryl and a Blair Salguero. All incisions were copiously irrigated using dilute normal saline and hydrogen peroxide mixture. Next all pneumoperitoneum was evacuated from the abdominal cavity. The 8-mm trocar sites were reapproximated using 4-0 Monocryl in an interrupted subcuticular fashion. Local anesthetic was infiltrated to all wounds for postop analgesia. All incisions were also cleansed with diluted hydrogen peroxide. An Optifoam surgical dressing was placed over the colon extraction site and YESSICA site. Exofin was applied to the rest of the skin incisions. The patient was extubated successfully. The patient was transferred to the postanesthesia care unit in stable condition.
[2019-08-31] MEDS: SODIUM CHLORIDE 0.9% 1,000 ML IV SCH (15:59)
[2019-08-31] MEDS: ONDANSETRON 4 MG/2 ML VIAL IVP SCH ×2 (17:46→23:37)
[2019-08-31] MEDS: METOCLOPRAMIDE 5 MG/ML 2 ML VIAL IVP SCH ×2 (17:47→23:38)
[2019-08-31] MEDS: metroNIDAZOLE-NS PMX 500 MG in SALINE 1 100ML.BAG IVPB SCH ×2 (17:47→23:49)
[2019-08-31 18:49] LABS: Carcinoembryonic Antigen 1.8 ng/mL (0.0-4.9)
[2019-08-31 19:19] LABS: Cancer Antigen 19-9 19.3 U/mL (0.0-34.9)
[2019-08-31] MEDS: ATORVASTATIN 20 MG TAB PO SCH (21:58)
[2019-08-31] MEDS: HEPARIN SODIUM,PORCINE 5,000 UNIT/ML 1 ML VIAL SQ SCH (21:58)
[2019-08-31] MEDS: METOPROLOL TARTRATE 25 MG TAB PO SCH (22:02)
[2019-09-01] MEDS: SODIUM CHLORIDE 0.9% 1,000 ML IV SCH ×2 (04:51→12:16)
[2019-09-01] MEDS: METOCLOPRAMIDE 5 MG/ML 2 ML VIAL IVP SCH ×3 (05:48→17:22)
[2019-09-01] MEDS: metroNIDAZOLE-NS PMX 500 MG in SALINE 1 100ML.BAG IVPB SCH ×3 (05:48→18:03)
[2019-09-01] MEDS: ONDANSETRON 4 MG/2 ML VIAL IVP SCH ×3 (05:48→17:22)
[2019-09-01] MEDS: LACTATED RINGERS 1,000 ML IV SCH (06:25)
[2019-09-01 06:44] LABS: HCT 36.8 % (34.0-46.0); HGB 11.9 gm/dL (11.4-16.0); MCH 30.3 pg (25.0-35.0); MCHC 32.2 g/dL (31.0-37.0); MCV 93.9 fL (80.0-100.0); Mean Platelet Volume 7.7; Platelet Count 199 k/uL (150-450); RBC 3.92 m/uL (3.80-5.40); RDW 13.7 % (11.5-15.5); WBC 7.4 k/uL (3.8-10.6)
[2019-09-01 07:17] LABS: African American GFR (CKD) >90 (>60 ml/min/1.73 sqM); Anion Gap 1 mmol/L; Blood Urea Nitrogen 6 mg/dL (7-17); Calcium 8.5 mg/dL (8.4-10.2); Carbon Dioxide 28 mmol/L (22-30); Chloride 109 mmol/L (98-107); Glucose 93 mg/dL (74-99); Non-African American GFR(CKD) >90 (>60 ml/min/1.73 sqM); Potassium 3.7 mmol/L (3.5-5.1); Sodium 138 mmol/L (137-145)
[2019-09-01 07:40] LABS: Lymphocytes # (M) 0.81 k/uL (1.0-4.8); Monocytes # (M) 0.59 k/uL (0-1.0); Neutrophils # (M) 5.99 k/uL (1.3-7.7); Neutrophils % (M) 81 %; Nucleated Red Blood Cells 0 /100 WBC (0-0); Total Cells Counted 100
--- NOTE | 2019-09-01 07:55 | P.PN ---
Progress Note - Text Progress Note Date: 09/01/19 (650) Anesthesia Postop day 1 Status post glottic assisted laparoscopic assisted colectomy with epidural due to Patient seen and examined. Doing well [without complaint]. VAS 0-1 out of 10. Denies nausea or vomiting. Mild pruritus, medicines available. Ropivacaine [0.1%] with fentanyl 5 mcg/mL at [6 mL] an hour. Platelets 199 T-max 98 5 heparin subcu Objective: Vital signs reviewed Lungs: Good chest excursion Abdomen: Appears nondistended Other: [Epidural Site Intact without induration. Dressing intact] Neuro: [No apparent motor block]. [Sensory within normal limits]. Assessment: Status post robotic colectomy [postop day 1] Plan: Continue current care with your medical management. Anticipate [reevaluation tomorrow].
[2019-09-01] MEDS: HEPARIN SODIUM,PORCINE 5,000 UNIT/ML 1 ML VIAL SQ SCH ×2 (08:22→21:02)
[2019-09-01] MEDS: ALVIMOPAN 12 MG CAPSULE PO SCH ×2 (08:22→21:02)
[2019-09-01] MEDS: METOPROLOL TARTRATE 25 MG TAB PO SCH ×2 (09:59→21:03)
[2019-09-01] MEDS: ROPIVACAINE 250 MG, fentaNYL (PF) 1,250 MCG in SODIUM CHLORIDE 0.9% 175 ML EPIDURAL PRN ×2 (10:36→18:17)
--- NOTE | 2019-09-01 15:02 | P.PN ---
Subjective Progress Note Date: 09/01/19 CHIEF COMPLAINT: Sigmoid colon cancer HISTORY OF PRESENT ILLNESS: The patient is a 59-year-old female status post robot sigmoid colectomy, 08/31/2019. She is postop day 1. She is tolerating clear liquid diet. No passage of flatus. She reports appropriate soreness left upper quadrant incision. ROS: No reports of nausea and vomiting. No bowel movements. No fevers or chills. No new chest pain. No productive sputum PHYSICAL EXAM: VITAL SIGNS: Reviewed CONSTITUTIONAL: Well developed and in no acute distress. EYES: Conjuctivae without sclera icterus. Extraocular movements grossly intact. HEAD, EARS, NOSE, THROAT: Moist buccal mucosa. Head is atraumatic, normocephalic. Hears conversational speech. No nasal drainage. NECK: Supple. No thyroidomegaly. RESPIRATORY: Non-labored respirations and equal bilateral excursions. CARDIOVASCULAR: Palpable 2+ radial pulses. Regular rate. Regular rhythm. ABDOMEN: Incisions clean dry and intact. Soft. No peritonitis. Minimal tenderness left upper quadrant. MUSCULOSKELETAL: No gross deformity of the lower extremities noted. No clubbi ng. No cyanosis. SKIN: Good skin turgor. Well perfused. NEUROLOGIC: Cranial nerves II through XII grossly intact. No focal or lateralizing signs. PSYCH: Appropriate affect. Alert and oriented to person, place and time. CLINICAL LABS: White blood cell count normal. Hemoglobin 11.9, down from 14.4. WBC 7400. Tumor markers CEA and CA-19-9 within normal limits, obtained immediately postprocedure. ASSESSMENT: 1. Sigmoid colon cancer PLAN: 1. Continue liquid diet 2. Will need follow-up with oncology with diagnosis of sigmoid colon cancer 3. Continue epidural for pain management. 4. Obtain iron panel for history of colon cancer Objective - Vital Signs Vital signs: Vital Signs Temp 98.3 F 09/01/19 07:35 Pulse 56 L 09/01/19 08:00 Resp 20 09/01/19 08:00 BP 95/58 09/01/19 07:35 Pulse Ox 100 09/01/19 08:42 Intake & Output 08/31/19 09/01/19 09/01/19 18:59 06:59 18:59 Intake Total 2550 Output Total 220 1300 Balance 2330 -1300 Weight 60.4 kg Intake: IV 2550 Output: Urine 190 1300 Estimated Blood Loss 30 Other: Voiding Method Indwelling Catheter Indwelling Catheter Indwelling Catheter - Labs CBC & Chem 7: 09/01/19 06:16 09/01/19 06:16 Labs: Abnormal Lab Results - Last 24 Hours (Table) 09/01/19 09/01/19 Range/Units 06:16 06:16 Lymphocytes # (Manual) 0.81 L (1.0-4.8) k/uL Chloride 109 H (98-107) mmol/L BUN 6 L (7-17) mg/dL Assessment and Plan (1) Cancer of sigmoid colon Current Visit: Yes Status: Acute Code(s): C18.7 - MALIGNANT NEOPLASM OF SIGMOID COLON SNOMED Code(s): 493881863
[2019-09-01 16:13] LABS: % Iron Saturation 25.28 (12.00-45.00)
[2019-09-01 16:29] LABS: Ferritin 10.9 ng/mL (10.0-291.0)
[2019-09-01] MEDS: ATORVASTATIN 20 MG TAB PO SCH (21:02)
[2019-09-02] MEDS: ONDANSETRON 4 MG/2 ML VIAL IVP SCH ×4 (01:27→17:09)
[2019-09-02] MEDS: METOCLOPRAMIDE 5 MG/ML 2 ML VIAL IVP SCH ×4 (01:28→17:09)
[2019-09-02] MEDS: metroNIDAZOLE-NS PMX 500 MG in SALINE 1 100ML.BAG IVPB SCH ×4 (01:28→17:53)
[2019-09-02] MEDS: SODIUM CHLORIDE 0.9% 1,000 ML IV SCH ×2 (03:25→17:10)
[2019-09-02] MEDS: LACTATED RINGERS 1,000 ML IV SCH (06:14)
[2019-09-02 08:23] LABS: HCT 37.6 % (34.0-46.0); HGB 12.3 gm/dL (11.4-16.0); MCH 30.7 pg (25.0-35.0); MCHC 32.7 g/dL (31.0-37.0); MCV 93.9 fL (80.0-100.0); Mean Platelet Volume 7.4; Platelet Count 202 k/uL (150-450); RBC 4.01 m/uL (3.80-5.40); RDW 13.6 % (11.5-15.5)
[2019-09-02 08:26] LABS: Anion Gap 3 mmol/L; Blood Urea Nitrogen 4 mg/dL (7-17); Carbon Dioxide 26 mmol/L (22-30); Chloride 108 mmol/L (98-107); Glucose 96 mg/dL (74-99); Potassium 3.6 mmol/L (3.5-5.1); Sodium 137 mmol/L (137-145)
[2019-09-02 08:27] LABS: African American GFR (CKD) >90 (>60 ml/min/1.73 sqM); Calcium 8.4 mg/dL (8.4-10.2); Non-African American GFR(CKD) >90 (>60 ml/min/1.73 sqM)
[2019-09-02] MEDS: METOPROLOL TARTRATE 25 MG TAB PO SCH ×2 (08:43→20:45)
[2019-09-02] MEDS: HEPARIN SODIUM,PORCINE 5,000 UNIT/ML 1 ML VIAL SQ SCH ×2 (08:43→20:45)
[2019-09-02] MEDS: ALVIMOPAN 12 MG CAPSULE PO SCH ×2 (08:43→20:42)
--- NOTE | 2019-09-02 08:58 | P.PN ---
Progress Note - Text Progress Note Date: 09/02/19 Anesthesia Postop day 2 Status post robotic colectomy with epidural day 3 Patient seen and examined. Doing well without complaint. VAS 5 out of 10tolerable. No nausea vomiting or pruritus. Ropivacaine 0.1% with fentanyl 5 mcg/mL at 5 mL an hour. Platelets greater than 200 subcu heparin every 12 Objective: Vital signs reviewed Lungs: Good chest excursion Abdomen: Appears nondistended Other: Epidural Site Intact without induration. Dressing intact Neuro: No apparent motor block. Sensory within normal limits. Assessment: Status post robotic colectomy postop day 2 Plan: Continue current care with your medical management. Anticipate epidural DC'd tomorrow.
[2019-09-02 09:14] LABS: Basophils # (M) 0.08 k/uL (0-0.2); Lymphocytes # (M) 1.36 k/uL (1.0-4.8); Monocytes # (M) 0.32 k/uL (0-1.0); Neutrophils # (M) 6.24 k/uL (1.3-7.7); Neutrophils % (M) 78 %; Nucleated Red Blood Cells 0 /100 WBC (0-0); Total Cells Counted 100
[2019-09-02] MEDS ORDERED: TAMSULOSIN 0.4 MG CAP.ER.24H PO STA (15:55)
--- NOTE | 2019-09-02 16:34 | P.PN ---
Subjective Progress Note Date: 09/02/19 CHIEF COMPLAINT: Sigmoid colon cancer HISTORY OF PRESENT ILLNESS: The patient is a 59-year-old female status post robot sigmoid colectomy, 08/31/2019. She is postop day 2. She is tolerating clear liquid diet. She ablated with nursing. She is now passing flatus. Pain is well controlled with epidural. No bowel movements. ROS: No reports of nausea and vomiting. o fevers or chills. No new chest pain. No productive sputum PHYSICAL EXAM: VITAL SIGNS: Reviewed CONSTITUTIONAL: Well developed and in no acute distress. EYES: Conjuctivae without sclera icterus. Extraocular movements grossly intact. HEAD, EARS, NOSE, THROAT: Moist buccal mucosa. Head is atraumatic, normocephalic. Hears conversational speech. No nasal drainage. NECK: Supple. No thyroidomegaly. RESPIRATORY: Non-labored respirations and equal bilateral excursions. CARDIOVASCULAR: Palpable 2+ radial pulses. Regular rate. Regular rhythm. ABDOMEN: Incisions clean dry and intact. Soft. No peritonitis. MUSCULOSKELETAL: No gross deformity of the lower extremities noted. No clubbing. No cyanosis. SKIN: Good skin turgor. Well perfused. NEUROLOGIC: Cranial nerves II through XII grossly intact. No focal or later alizing signs. PSYCH: Appropriate affect. Alert and oriented to person, place and time. CLINICAL LABS: White blood cell count normal, 8.0. Hemoglobin 11.9 up to 12.3. Tumor markers CEA and CA-19-9 within normal limits, obtained immediately postprocedure. Iron panel within normal limits. ASSESSMENT: 1. Sigmoid colon cancer PLAN: 1. Advance diet to full liquid diet. 2. Discontinue epidural and Sheppard catheter 3. Tamsulosin started for prevention of postoperative urinary retention 4. Transition to Tylenol including ibuprofen for pain 5. Disposition home 24 hours Objective - Vital Signs Vital signs: Vital Signs Temp 98.7 F 09/02/19 14:27 Pulse 63 09/02/19 15:53 Resp 18 09/02/19 15:53 BP 129/78 09/02/19 14:27 Pulse Ox 99 09/02/19 14:27 Intake & Output 09/01/19 09/02/19 09/02/19 18:59 06:59 18:59 Intake Total 1088.417 248.583 Output Total 1400 550 Balance 1088.417 -1400 -301.417 Intake: Intake, IV Titration 488.417 248.583 Amount Ropivacaine 250 mg 38.417 98.583 fentaNYL (PF) 1,250 mcg In Sodium Chloride 0.9% 175 ml @ Per Protocol EPIDURAL .Q0M PRN Rx#: [id number] Sodium Chloride 0.9% 1, 450 000 ml @ 75 mls/hr IV . [id number] [facility] Rx#:[id number] ceFAZolin 2 gm In Sodium 50 Chloride 0.9% 50 ml @ 100 mls/hr IVPB Q8H [facility] Rx#: [id number] metroNIDAZOLE-NS PMX 500 100 mg In Saline 1 100ml.bag @ 100 mls/hr IVPB Q6HR [facility] Rx#:[id number] Oral 600 Output: Urine 1400 550 Other: Voiding Method Indwelling Catheter Indwelling Catheter Indwelling Catheter - Labs CBC & Chem 7: 09/02/19 07:37 09/02/19 07:37 Labs: Abnormal Lab Results - Last 24 Hours (Table) 09/02/19 Range/Units 07:37 Chloride 108 H (98-107) mmol/L BUN 4 L (7-17) mg/dL Assessment and Plan (1) Cancer of sigmoid colon Current Visit: Yes Status: Acute Code(s): C18.7 - MALIGNANT NEOPLASM OF SIGMOID COLON SNOMED Code(s): 199529330
[2019-09-02] MEDS: ACETAMINOPHEN TAB 500 MG TAB PO SCH (17:07)
[2019-09-02] MEDS: KETOROLAC 30 MG/ML 1 ML VIAL IVP SCH (17:08)
[2019-09-02 19:24] VITALS: RESP 16
[2019-09-02] MEDS: ATORVASTATIN 20 MG TAB PO SCH (20:45)
[2019-09-03] MEDS: metroNIDAZOLE-NS PMX 500 MG in SALINE 1 100ML.BAG IVPB SCH ×2 (00:11→06:19)
[2019-09-03] MEDS: ACETAMINOPHEN TAB 500 MG TAB PO SCH ×2 (00:11→06:19)
[2019-09-03] MEDS: ONDANSETRON 4 MG/2 ML VIAL IVP SCH ×2 (00:12→06:19)
[2019-09-03] MEDS: METOCLOPRAMIDE 5 MG/ML 2 ML VIAL IVP SCH ×2 (00:12→06:19)
[2019-09-03] MEDS: KETOROLAC 30 MG/ML 1 ML VIAL IVP SCH ×2 (00:12→06:19)
[2019-09-03] MEDS: LACTATED RINGERS 1,000 ML IV SCH (04:43)
[2019-09-03 07:38] VITALS: BP 144/86; PULSE 70; TEMP 98.4
[2019-09-03] MEDS: ALVIMOPAN 12 MG CAPSULE PO SCH (08:00)
[2019-09-03] MEDS: METOPROLOL TARTRATE 25 MG TAB PO SCH (08:08)
[2019-09-03] MEDS: HEPARIN SODIUM,PORCINE 5,000 UNIT/ML 1 ML VIAL SQ SCH (08:08)
[2019-09-03] MEDS: SODIUM CHLORIDE 0.9% 1,000 ML IV SCH (08:10)
[2019-09-03] MEDS ORDERED: TAMSULOSIN 0.4 MG CAP.ER.24H PO SCH (09:00)
--- NOTE | 2019-09-03 10:53 | P.CONS ---
History of Present Illness - Reason for Consult Consult date: 09/02/19 New diagnosis Adenocarcinoma of colon Requesting physician: Flaquita Martinez - Chief Complaint Changes in bowel practices - History of Present Illness Ms. Bates is a 59-year-old female who recently underwent colonoscopy 08/09 with biopsy which revealed adenocarcinoma of the colon. She is now status post ro sigmoid colectomy, 08/31/[address] Martinez. She is tolerating clear liquid diet. Still with discomfort, somewhat improved today. Epidural remains in place. She is passing flatus. She has not moved bowels post operatively yet. Medical Oncology was asked to evaluate due to her new diagnosis. Currently awaiting path of resection and LN involvement and liver lesions (two questionable in pre-operative imaging) Review of Systems A 14 point review of systems assessed and completed and all negative except HPI Past Medical History Past Medical History: Cancer, Hyperlipidemia, Hypertension Additional Past Medical History / Comment(s): Migraines. Varicose veins. Osteoporosis, colon cancer History of Any Multi-Drug Resistant Organisms: None Reported Past Surgical History: Section Additional Past Surgical History / Comment(s): Varicose vein surgery left leg. Colonoscopy Past Anesthesia/Blood Transfusion Reactions: No Reported Reaction Past Psychological History: No Psychological Hx Reported Smoking Status: Former smoker Past Alcohol Use History: Rare Additional Past Alcohol Use History / Comment(s): Quit smoking 2000; smoked for 25 yrs; 1 1/2 PPD Past Drug Use History: None Reported - Past Family History Father Family Medical History: Cancer Additional Family Medical History / Comment(s): lung cancer Medications and Allergies Home Medications Medication Instructions Recorded Confirmed Type Cholecalciferol [Vitamin D3] 2,000 unit PO DAILY 01/02/18 08/31/19 History Rizatriptan Odt [Maxalt Braille Translator] 10 mg PO DIRECTED PRN 01/02/18 08/31/19 History Simvastatin 40 mg PO HS 01/02/18 08/31/19 History Calcium Carbonate [Calcium] 1,500 mg PO DAILY 04/25/18 08/31/19 History Metoprolol Tartrate [Lopressor] 25 mg PO BID 07/28/18 08/31/19 History Magnesium 500 mg PO DAILY 08/09/19 08/31/19 History [place]-3 Fatty Acids/Fish Oil [Fish 1 each PO DAILY 08/09/19 08/31/19 History Oil 1,000 mg Softgel] Ondansetron HCl [Zofran] 8 mg PO TID PRN 08/09/19 08/31/19 History Allergies Allergy/AdvReac Type Severity Reaction Status Date / Time clopidogrel [From Plavix] AdvReac Unknown Verified 09/02/19 06:48 Physical Exam Vitals: Vital Signs Temp Pulse Resp BP Pulse Ox 09/02/19 07:20 98.6 F 83 20 132/76 09/02/19 01:00 98.8 F 68 16 142/82 96 09/02/19 00:00 63 16 09/01/19 19:14 98.7 F 63 16 116/74 96 09/01/19 15:48 61 16 09/01/19 15:00 98.3 F 61 16 100/64 99 Intake and Output 09/01/19 09/02/19 09/02/19 22:59 06:59 14:59 Intake Total 38.417 Output Total 300 1100 550 Balance -261.583 -1100 -550 Intake: Intake, IV Titration 38.417 Amount Ropivacaine 250 mg 38.417 fentaNYL (PF) 1,250 mcg In Sodium Chloride 0.9% 175 ml @ Per Protocol EPIDURAL .Q0M PRN Rx#: [id number] Output: Urine 300 1100 550 Other: Voiding Method Indwelling Catheter Indwelling Catheter Indwelling Catheter - Constitutional General appearance: cooperative, no acute distress - EENT Eyes: EOMI, dentition normal ENT: NA/AT, normal oropharynx - Neck Neck: normal ROM - Respiratory Respiratory: bilateral: diminished (lower lobes, no increased effort) - Cardiovascular Heart rate: 108 (tachycardia) Rhythm: regular - Gastrointestinal Evidence of recent surgical intervention General gastrointestinal: tenderness - Integumentary Integumentary: normal Results CBC & Chem 7: 09/02/19 07:37 09/02/19 07:37 Labs: Abnormal Lab Results - Last 24 Hours (Table) 09/02/19 Range/Units 07:37 Chloride 108 H (98-107) mmol/L BUN 4 L (7-17) mg/dL Assessment and Plan (1) Cancer of sigmoid colon Current Visit: Yes Status: Acute Code(s): C18.7 - MALIGNANT NEOPLASM OF SIGMOID COLON SNOMED Code(s): 027731996 Plan: Assessment and Recommendations: 1. New Diagnosis of Adenocarcinoma of the Sigmoid Colon: - Will await final findings from colectomy for lymph node involvement for systemic treatment recommendations - Will set up for PET scan as an outpatient
--- NOTE | 2019-09-03 10:59 | P.PN ---
Subjective Progress Note Date: 09/03/19 Principal diagnosis: New Adenocarcinoma of Colon She is feeling better today and ready for discharge. Her incisions look good, no erythema. We discussed plan for follow-up as outpatient. Objective - Vital Signs Vital signs: Vital Signs Temp 98.4 F 09/03/19 07:00 Pulse 70 09/03/19 07:00 Resp 16 09/03/19 07:00 BP 144/86 09/03/19 07:00 Pulse Ox 98 09/03/19 07:00 Intake & Output 09/02/19 09/03/19 09/03/19 18:59 06:59 18:59 Intake Total 248.583 600 Output Total 550 1450 Balance -301.417 -850 Intake: Intake, IV Titration 248.583 600 Amount Ropivacaine 250 mg 98.583 fentaNYL (PF) 1,250 mcg In Sodium Chloride 0.9% 175 ml @ Per Protocol EPIDURAL .Q0M PRN Rx#: [id number] Sodium Chloride 0.9% 1, 600 000 ml @ 75 mls/hr IV . [id number] FLORENCIO Rx#:[id number] ceFAZolin 2 gm In Sodium 50 Chloride 0.9% 50 ml @ 100 mls/hr IVPB Q8H FLORENCIO Rx#: [id number] metroNIDAZOLE-NS PMX 500 100 mg In Saline 1 100ml.bag @ 100 mls/hr IVPB Q6HR FLORENCIO Rx#:[id number] Output: Urine 550 1450 Other: Voiding Method Indwelling Catheter Toilet Toilet # Voids 1 2 # Bowel Movements 1 2 - Exam - Constitutional General appearance: cooperative, no acute distress - EENT Eyes: EOMI, dentition normal ENT: NA/AT, normal oropharynx - Neck Neck: normal ROM - Respiratory Respiratory: bilateral: diminished (lower lobes, no increased effort) - Cardiovascular Heart rate: reg Rhythm: regular - Gastrointestinal Evidence of recent surgical intervention General gastrointestinal: tenderness - Integumentary Integumentary: normal - Labs CBC & Chem 7: 09/02/19 07:37 09/02/19 07:37 Assessment and Plan (1) Cancer of sigmoid colon Current Visit: Yes Status: Acute Code(s): C18.7 - MALIGNANT NEOPLASM OF SIGMOID COLON SNOMED Code(s): 973200741 Plan: Assessment and Recommendations: 1. New Diagnosis of Adenocarcinoma of the Sigmoid Colon: - Will await final findings from colectomy for lymph node involvement for systemic treatment recommendations - PET scan as an outpatient 2-3 weeks - Dr. Lozano and FACILITY MAINTENANCE SUPERVISOR visit within 3-4 weeks OK for discharge from oncology standpoint.
--- NOTE | 2019-09-03 13:05 | P.DS ---
Providers Date of admission: 08/31/19 07:17 Expected date of discharge: 09/03/19 Attending physician: Flaquita Martinez Consults: 09/01/19 15:02 Consult Physician Routine Consulting Provider: Roland Lozano Consult Reason/Comments: Colon cancer, new diagnosis Do you want consulting provider notified?: Yes Primary care physician: Gillian Bianchi Hospital Course: 59-year-old female who underwent robotic assisted laparoscopic sigmoid colectomy and low anterior resection secondary to sigmoid colon cancer with Dr. Martinez on 08/31/2019. Patient is doing well postoperatively without any immediate consultations. Patient is tolerating diet without nausea or vomiting. She is passing flatus and having bowel movements. Pain is controlled on oral medications. She is stable for discharge home today per Dr. Martinez. Please see EMR for further hospital course details. Discharge diagnosis 1. Sigmoid colon cancer 2. Liver hemangioma 3. Hypertensive heart disease without heart failure 4. Hyperlipidemia 5. Osteoporosis 6. Migraines 7. 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 Signing provider agrees with the documented findings, assessment, and plan of care. Patient Condition at Discharge: Stable Plan - Discharge Summary Discharge Rx Participant: No New Discharge Prescriptions: New Ibuprofen [Motrin] 600 mg PO Q8HR PRN #30 tab PRN Reason: Pain Acetaminophen Tab [Tylenol Tab] 650 mg PO Q4H PRN #30 tablet PRN Reason: Pain No Action Cholecalciferol [Vitamin D3] 2,000 unit PO DAILY Simvastatin 40 mg PO HS Rizatriptan Odt [Maxalt Quality Compliance Coordinator] 10 mg PO DIRECTED PRN PRN Reason: migraines Calcium Carbonate [Calcium] 1,500 mg PO DAILY Metoprolol Tartrate [Lopressor] 25 mg PO BID Magnesium 500 mg PO DAILY Ondansetron HCl [Zofran] 8 mg PO TID PRN PRN Reason: Nausea And Vomiting Torrance-3 Fatty Acids/Fish Oil [Fish Oil 1,000 mg Softgel] 1 each PO DAILY Discharge Medication List Cholecalciferol [Vitamin D3] 2,000 unit PO DAILY 01/02/18 [History] Rizatriptan Odt [Maxalt Quality Compliance Coordinator] 10 mg PO DIRECTED PRN 01/02/18 [History] Simvastatin 40 mg PO HS 01/02/18 [History] Calcium Carbonate [Calcium] 1,500 mg PO DAILY 04/25/18 [History] Metoprolol Tartrate [Lopressor] 25 mg PO BID 07/28/18 [History] Magnesium 500 mg PO DAILY 08/09/19 [History] Torrance-3 Fatty Acids/Fish Oil [Fish Oil 1,000 mg Softgel] 1 each PO DAILY 08/09/19 [History] Ondansetron HCl [Zofran] 8 mg PO TID PRN 08/09/19 [History] Acetaminophen Tab [Tylenol Tab] 650 mg PO Q4H PRN #30 tablet 09/03/19 [Rx] Ibuprofen [Motrin] 600 mg PO Q8HR PRN #30 tab 09/03/19 [Rx] Follow up Appointment(s)/Referral(s): Sapna Zavala ANPBC [Nurse Practitioner] - 2 Weeks (Office will call to make appointment with you.) Flaquita Martinez MD [STAFF PHYSICIAN] - 09/11/19 11:20 am Patient Instructions/Handouts: Laparoscopic Bowel Resection (DC) Activity/Diet/Wound Care/Special Instructions: Tylenol and Motrin as needed for pain No lifting over 4 pounds for 4 weeks (September 30, 2019) You may shower. No soaking or tub baths Very light activity until you are reevaluated at your follow up appointment with your surgeon Low fiber diet Discharge Disposition: HOME SELF-CARE
== END 2019-09-03 12:42 | disposition home or self-care (01) | DRG 330 ==
LOC: 2ORMAIN 07:17 → 4SSUR 13:04
PROVIDERS: ADMIT Surgery Plastic and Reconstructive Surgery; ATTEND Surgery Plastic and Reconstructive Surgery
PROC: 0DJD8ZZ Inspection of Lower Intestinal Tract, Via Natural or Artificial Opening Endoscopic (ICD-10-PCS; principal; 2019-08-31 08:55)
PROC: 0DTN0ZZ Resection of Sigmoid Colon, Open Approach (ICD-10-PCS; principal; 2019-08-31 08:55)
PROC: 8E0W4CZ Robotic Assisted Procedure of Trunk Region, Percutaneous Endoscopic Approach (ICD-10-PCS; principal; 2019-08-31 08:55)
DX: C18.7 Malignant neoplasm of sigmoid colon (principal); Q43.8 Other specified congenital malformations of intestine; C78.7 Secondary malignant neoplasm of liver and intrahepatic bile duct; E78.5 Hyperlipidemia, unspecified; G43.909 Migraine, unspecified, not intractable, without status migrainosus; I11.9 Hypertensive heart disease without heart failure; M81.0 Age-related osteoporosis without current pathological fracture; D18.03 Hemangioma of intra-abdominal structures; L29.9 Pruritus, unspecified; Z85.038 Personal history of other malignant neoplasm of large intestine; Z80.1 Family history of malignant neoplasm of trachea, bronchus and lung; Z87.891 Personal history of nicotine dependence; Z79.899 Other long term (current) drug therapy; Z98.891 History of uterine scar from previous surgery; Z98.890 Other specified postprocedural states; Z88.8 Allergy status to other drugs, medicaments and biological substances
CPT/HCPCS: 36415; 80048; 80053; 82378; 82728; 83540; 83550; 85025; 85610; 85730; 86301; 86850; 86900; 86901; 88304; 88307; 88309; 94760

== ENCOUNTER → 2019-09-14 | Outpatient (CLI) | payer OTHER ==
--- NOTE | 2019-09-18 13:38 | PE ---
Nuclear medicine PET/CT history: Colon carcinoma, colorectal cancer, initial Correlation to CT scan 08/14/2019, MR abdomen 08/16/2019 Patient received 12.5 mCi F-18 FDG intravenously in delayed scanning was performed from skull base to the mid thighs. Localization and attenuation correction CT scan was performed. Neck and chest: There is no supraclavicular or cervical adenopathy. No mediastinal, axillary, or osman r adenopathy. Coronary artery calcifications are noted. There is no pleural effusion, minimal pericar dial fluid present. There is no lung mass. No suspicious uptake is identified. ABDOMEN: The lesions previously identified within the liver are again vaguely noted, no suspicious up take. There is no retroperitoneal adenopathy. Circumaortic left renal vein is present. There is no fr ee fluid present. At the rectosigmoid colon there is a suture line present, some mild uptake is prese nt which may be postoperative. No evident pelvic adenopathy. Uptake along the right pelvic sidewall i s felt likely to be ureteral activity. Uptake in the left lower quadrant may be postprocedural along the musculature and subcutaneous fat. Osseous structures are unremarkable. There is degenerative disc changes visualized spine, facet arthr opathy in the lower lumbar spine. IMPRESSION: Postop changes are likely. Uptake in the patient's anastomosis is noted.
== END | disposition home or self-care (01) ==
LOC: RADPETMAIN 11:41
PROVIDERS: ATTEND Internal Medicine Hematology & Oncology
DX: C18.7 Malignant neoplasm of sigmoid colon (principal)
CPT/HCPCS: 78815; A9552

== ENCOUNTER 2020-08-13 08:13 | Day surgery (SDC) | payer OTHER ==
[2020-08-11 15:24] VITALS: BMI 23.5
[~2020-08-13 08:13] MED LIST changes: -ACETAMINOPHEN TAB 500 MG TAB PO ONE; -ALVIMOPAN 12 MG CAPSULE PO ONE; -Antibiotics per Pharmacy 1 EACH MISC MISCELLANE PRN; -DEXAMETHASONE SOD PHOSPHATE 10 MG/ML 1 ML VIAL IV ONE; -HEPARIN SODIUM,PORCINE 5,000 UNIT/ML 1 ML VIAL SQ ONE; -HYDROmorphone 0.5 MG/0.5 ML SYRINGE IVP PRN; +LACTATED RINGERS 1,000 ML IV SCH; -MELOXICAM 7.5 MG TAB PO ONE; -MIDAZOLAM 2 MG/2 ML VIAL IV PRN; -ONDANSETRON 4 MG/2 ML VIAL IVP ONE; -TEMAZEPAM 15 MG CAP PO PRN; -fentaNYL (PF) 50 MCG/ML 2 ML AMP IV PRN; -metroNIDAZOLE-NS PMX 500 MG in SALINE 1 100ML.BAG IVPB ONE
[2020-08-13 09:04] VITALS: TEMP 99.2
[2020-08-13] MEDS ORDERED: KETOROLAC 15 MG/ML 1 ML VIAL ONE (09:08)
[2020-08-13] MEDS ORDERED: ONDANSETRON 4 MG/2 ML VIAL ONE (09:08)
[2020-08-13] MEDS ORDERED: ONDANSETRON 4 MG/2 ML VIAL IVP ONE (09:18)
[2020-08-13] MEDS ORDERED: KETOROLAC 15 MG/ML 1 ML VIAL IVP ONE (09:19)
[2020-08-13] MEDS ORDERED: PROPOFOL 10 MG/ML 20 ML VIAL IV ONE (09:22)
--- NOTE | 2020-08-13 09:38 | P.PCN ---
Date of Procedure: 08/13/20 Procedure(s) Performed: BRIEF HISTORY: Patient is a 60-year-old pleasant white female scheduled for an elective colonoscopy as a part of surveillance of recent history of colon cancer diagnosed in July 2019. She was noted to have a sigmoid adenocarcinoma for which she underwent sigmoid resection. She is currently symptomatic PROCEDURE PERFORMED: Colonoscopy with biopsy. PREOPERATIVE DIAGNOSIS: Follow-up sigmoid colon cancer diagnosed in July 2019. IV sedation per Anesthesia. PROCEDURE: After informed consent was obtained, the patient, was brought into the endoscopy unit. IV sedation was administered by Anesthesia under continuous monitoring. Digital rectal examination was normal. Initially the Olympus CF-160 flexible video colonoscope was then inserted in the rectum, gradually advanced into the cecum without any difficulty. Careful examination was performed as the scope was gradually being withdrawn. Ileocecal valve and the appendiceal orifice were visualized and appeared normal. Prep was excellent. Mucosa of the cecum, appeared normal. Ascending colon there was a 2 mm sessile polyp removed by cold biopsy. Rest of the ascending colon, transverse colon, descending colon, rectum appeared normal. The anastomosis was located at 50 cm from the anal verge Retroflexion was performed in the rectum and no lesions were seen. The patient tolerated the procedure well. IMPRESSION: 2 mm ascending colon polyp status post cold biopsy Rest of the colon appeared normal RECOMMENDATIONS: Findings of this examination were discussed with the patient as well as a family. She was advised to follow with the biopsy results. Skin have a repeat surveillance colonoscopy in 2 years..
[2020-08-13 10:05] VITALS: BP 134/81; PULSE 66; RESP 16
== END 2020-08-13 10:27 | disposition home or self-care (01) ==
LOC: ORWHC2ENDO 08:13
PROVIDERS: ATTEND Internal Medicine Gastroenterology
DX: Z12.11 Encounter for screening for malignant neoplasm of colon (principal); D12.2 Benign neoplasm of ascending colon; Z85.038 Personal history of other malignant neoplasm of large intestine; Z90.49 Acquired absence of other specified parts of digestive tract; Z79.899 Other long term (current) drug therapy; I10 Essential (primary) hypertension; Z87.891 Personal history of nicotine dependence; M81.0 Age-related osteoporosis without current pathological fracture; G43.909 Migraine, unspecified, not intractable, without status migrainosus
CPT/HCPCS: 88305; 45380; J2405; J1885; J2704

== ENCOUNTER → 2020-08-25 | Outpatient (CLI) | payer OTHER ==
[2020-08-25 15:03] LABS: African American GFR (CKD) >90 (>60 ml/min/1.73 sqM); Blood Urea Nitrogen 13 mg/dL (7-17); Non-African American GFR(CKD) >90 (>60 ml/min/1.73 sqM)
--- NOTE | 2020-08-25 16:16 | CT ---
EXAMINATION TYPE: CT abdomen pelvis w con DATE OF EXAM: 08/25/2020 HISTORY: Colon ca. Pt not reporting any issues at this time. CT DLP: 455mGycm Automated Exposure Control for Dose Reduction was Utilized. CONTRAST: CT scan of the abdomen and pelvis is performed with IV Contrast, patient injected with 100 mL of Isov ue 300. COMPARISON: Prior CT abdomen and pelvis August 14, 2019 and prior PET/CT September 14, 2019 and MRI abdomen M 2019 FINDINGS: LUNG BASES: No significant abnormality is appreciated. LIVER/GB: Stable heterogeneous peripheral nodular enhancing 6.5 x 4.5 x 4.9 cm hepatic mass with socorro yed central filling consistent with large hemangioma. There are 2 subcentimeter round hypodense lesio ns right hepatic lobe axial image 31 stable presumed benign thin-walled cysts. PANCREAS: No significant abnormality is seen. SPLEEN: No significant abnormality is seen. ADRENALS: No significant abnormality is seen. KIDNEYS: No significant abnormality is seen. BOWEL: Oral contrast was not reached level of terminal ileum making evaluation of distal bowel slight ly suboptimal. Sutures from prior surgery sigmoid rectal colon axial image 57 are redemonstrated. Mil e-sj-vbuswtsa fecal prominence right and transverse colon. No suspicious small or large bowel dilatat ion. UTERUS/ADNEXA: Retroflexed uterus projects to left of midline similar to prior. LYMPH NODES: No greater than 1cm abdominal or pelvic lymph nodes are appreciated. OSSEOUS STRUCTURES: Moderate to severe disc space narrowing with endplate sclerosis level L5-S1 level . OTHER: Mild to moderate calcified plaque of the aorta extends into branch vessels. IMPRESSION: No suspicious new mass or adenopathy to suggest active neoplastic recurrence.
== END | disposition home or self-care (01) ==
LOC: RADCTMAIN 13:58
PROVIDERS: ATTEND Internal Medicine Hematology & Oncology
DX: Z85.038 Personal history of other malignant neoplasm of large intestine (principal); R16.0 Hepatomegaly, not elsewhere classified
CPT/HCPCS: 82565; 84520; 74177; 36415; Q9967

== ENCOUNTER → 2020-10-15 | Outpatient (CLI) | payer BC ==
--- NOTE | 2020-10-15 15:16 | XR ---
EXAMINATION TYPE: XR knee complete LT DATE OF EXAM: 10/15/2020 COMPARISON: NONE HISTORY: Pain TECHNIQUE: Three views are submitted. FINDINGS: Mild narrowing of the tricompartment spaces. Small cystic patellar bursal fluid collection. Vascular calcifications noted. Sclerotic density overlying the head of the fibula may be superficial or repres ent a small bone island.. Osseous structures are intact. No acute fracture seen. IMPRESSION: 1. Mild osteoarthritis. There is a suprapatellar bursal fluid collection which can be associated with internal derangement of the knee correlate with MRI as clinically warranted..
== END | disposition home or self-care (01) ==
LOC: RADXRMAIN 14:52
PROVIDERS: ATTEND Physician Assistant
DX: M17.12 Unilateral primary osteoarthritis, left knee (principal)

== ENCOUNTER → 2021-04-09 | Outpatient (CLI) | payer MEDICAID ==
[2021-04-09 18:15] LABS: HCT 43.4 % (37.2-46.3); HGB 13.9 g/dL (12.0-15.0); MCH 30.3 pg (27.0-32.0); MCV 94.8 fL (80.0-97.0); Mean Platelet Volume 10.3 fL (9.5-12.2); Platelet Count 204 X 10*3/uL (140-440); RBC 4.58 X 10*6/uL (4.10-5.20); RDW 13.2 % (11.5-14.5); WBC 6.14 X 10*3/uL (4.50-10.00)
[2021-04-09 18:27] LABS: ALT 20 U/L (8-44); AST 23 U/L (13-35); African American GFR (CKD) 106.9 (60.0-200.0); Albumin 4.3 g/dL (3.8-4.9); Albumin/Globulin Ratio 1.95 (1.60-3.17); Alkaline Phosphatase 41 U/L (41-126); BUN/Creat Ratio 14.86 Ratio (12.00-20.00); Blood Urea Nitrogen 10.4 mg/dL (9.0-27.0); Calcium 9.1 mg/dL (8.7-10.3); Carbon Dioxide 24.9 mmol/L (20.0-27.5); Chloride 106 mmol/L (96-109); Chol/HDL Ratio 2.33 Ratio; Globulin 2.2 g/dL (1.6-3.3); Glucose 85 mg/dL (70-110); LDL Cholesterol,Calculated 74.8 mg/dL (0.0-131.0); Non-African American GFR(CKD) 92.2 (60.0-200.0); Potassium 4.3 mmol/L (3.5-5.5); Sodium 142 mmol/L (135-145); Total Protein 6.5 g/dL (6.2-8.2); VLDL Calculation 15.26 mg/dL (5.00-40.00)
== END | disposition home or self-care (01) ==
LOC: LABWHC1 11:31
PROVIDERS: ATTEND Physician Assistant Medical
DX: E78.5 Hyperlipidemia, unspecified (principal); Z85.43 Personal history of malignant neoplasm of ovary
CPT/HCPCS: 36415; 80053; 80061; 84443; 85027

== ENCOUNTER → 2021-08-27 | Outpatient (CLI) | payer MEDICAID ==
--- NOTE | 2021-08-27 13:27 | CT ---
EXAMINATION TYPE: CT abdomen pelvis w con DATE OF EXAM: 08/27/2021 COMPARISON: CT dated 08/29/2020 HISTORY: Follow up of sigmoid cancer CT DLP: 891 mGycm Automated exposure control for dose reduction was used. TECHNIQUE: Helical acquisition of images was performed from the lung bases through the pelvis. CONTRAST: Performed with Oral Contrast and with IV Contrast, patient injected with 70 mL of Isovue 300. FINDINGS: LUNG BASES: Stable right lateral basal pleural based millimetric pulmonary nodule. LIVER/GB: Stable large hemangioma at the posterior aspect of the right hepatic lobe measuring 6.7 cm as well as the 2 small millimetric cysts at the inferior aspect of the right hepatic lobe. No definit e new hepatic focal lesion identified. Unremarkable gallbladder. PANCREAS: No significant abnormality is seen. SPLEEN: No significant abnormality is seen. ADRENALS: No significant abnormality is seen. KIDNEYS: No significant abnormality is seen. FREE AIR: No free air is visualized. RETROPERITONEAL ADENOPATHY: None visualized REPRODUCTIVE ORGANS: No gross uterine or adnexal mass URINARY BLADDER: No significant abnormality is seen. PELVIC ADENOPATHY: No pathologically enlarged lymph nodes. OSSEOUS STRUCTURES: Marked degenerative changes at L5-S1 level. No gross aggressive bone lesion. BOWEL: Unremarkable stomach, duodenum and small bowel. No evidence of bowel obstruction. Unremarkabl e colonic anastomosis in the pelvis. Moderate fecal loading of the colon. Nonspecific wall thickening of the cecum and ascending colon, recommend correlation with colonoscopy results. Normal appendix. OTHER: Scattered arterial atherosclerotic calcifications. No sizable ascites. IMPRESSION: Stable condition with no evidence of focal tumor recurrence or metastatic disease in the abdomen or t he pelvis. Incidental findings and recommendations as described above.
== END | disposition home or self-care (01) ==
LOC: RADCTMAIN 10:20
PROVIDERS: ATTEND Internal Medicine Hematology & Oncology
DX: C18.7 Malignant neoplasm of sigmoid colon (principal)
CPT/HCPCS: 74177; Q9967 ×2

== ENCOUNTER → 2022-01-08 | Outpatient (CLI) | payer MEDICAID ==
--- NOTE | 2022-01-09 05:48 | MR ---
EXAMINATION TYPE: MR ankle RT wo con DATE OF EXAM: 01/08/2022 COMPARISON: None HISTORY: DISRD OF SYNOVIUM AND TENDON, RIGHT ANKLE SWELLING, NO KNOWN INJURY Multiplanar multiecho imaging of the right ankle performed with no contrast. Achilles tendon is intact. The plantar fascia is intact. There is some thickening of the Achilles ten don posterior to the ankle joint but no evidence of edema or mass. There is small ankle joint effusion. The ankle mortise is anatomic. Joint spaces are fairly normal. T he medial and lateral flexor tendons are intact. No evidence of focal bone destruction. No bone edema . No sign of a fracture. The collateral ligaments are intact. No evidence of a soft tissue mass. IMPRESSION: There is ankle joint effusion that could be some nonspecific synovitis. There is mild relative thicke sylvia of the Achilles tendon of uncertain significance. No fluid signal seen to suggest a tendon tear. This appears to correspond to the patient's symptoms of swelling posterior to the ankle joint. The t endon is measuring up to 1.4 cm in thickness which is twice normal.
== END | disposition home or self-care (01) ==
LOC: RADMRIMAIN 06:43
PROVIDERS: ATTEND Physician Assistant
DX: M25.471 Effusion, right ankle (principal)

== ENCOUNTER → 2022-01-15 | Outpatient (CLI) | payer MEDICAID ==
--- NOTE | 2022-01-18 20:35 | MM ---
Reason for Exam: Screening (asymptomatic). Last mammogram was performed 1 year(s) and 11 month(s) ago. Patient History: Menarche at age 10. First Full-Term at age 19. Postmenopausal. Patient has history of breast feeding. Risk Values: Alena 5 year model risk: 1.4%. NCI Lifetime model risk: 6.0%. Prior Study Comparison: 01/31/2018 Bilateral MG screening mammo w CAD - 2, [facility]. 02/13/2020 Bilateral MG 3D screening mammo w/cad, [facility]. Tissue Density: The breast tissue is heterogeneously dense. This may lower the sensitivity of mammography. Findings: Analyzed By CAD. There is no suspicious group of microcalcifications or new suspicious mass in either breast. Overall Assessment: Benign, BI-RAD 2 Management: Screening Mammogram of both breasts in 1 year. 1. Patient should continue monthly self breast exams. 2. A clinical breast exam by your physician is recommended on an annual basis. 3. This exam should not preclude additional follow-up of suspicious palpable abnormalities. Electronically signed and approved by: Kaushik Lazaro M.D. Radiologist
== END | disposition home or self-care (01) ==
LOC: RADMAMWWP 10:55
PROVIDERS: ATTEND Family Medicine
DX: Z12.31 Encounter for screening mammogram for malignant neoplasm of breast (principal); Z78.0 Asymptomatic menopausal state
CPT/HCPCS: 77063; 77067

== ENCOUNTER → 2022-01-16 | Outpatient (CLI) | payer MEDICAID ==
[2022-01-16 11:15] LABS: HCT 43.4 % (34.0-46.0); HGB 14.8 gm/dL (11.4-16.0); MCH 32.2 pg (25.0-35.0); MCHC 34.1 g/dL (31.0-37.0); MCV 94.5 fL (80.0-100.0); Mean Platelet Volume 8.4; Platelet Count 185 k/uL (150-450); RBC 4.59 m/uL (3.80-5.40); RDW 12.5 % (11.5-15.5); WBC 4.8 k/uL (3.8-10.6)
[2022-01-16 11:25] LABS: ALT 26 U/L (4-34); AST 32 U/L (14-36); African American GFR (CKD) >90 (>60 ml/min/1.73 sqM); Albumin 4.5 g/dL (3.5-5.0); Alkaline Phosphatase 46 U/L (38-126); Anion Gap 7 mmol/L; Blood Urea Nitrogen 19 mg/dL (7-17); Calcium 9.3 mg/dL (8.4-10.2); Carbon Dioxide 29 mmol/L (22-30); Chloride 102 mmol/L (98-107); Globulin 2.2 g/dL; Glucose 84 mg/dL (74-99); Non-African American GFR(CKD) >90 (>60 ml/min/1.73 sqM); Potassium 4.6 mmol/L (3.5-5.1); Sodium 138 mmol/L (137-145); Total Bilirubin 0.7 mg/dL (0.2-1.3); Total Protein 6.7 g/dL (6.3-8.2)
[2022-01-16 23:12] LABS: Chol/HDL Ratio 2.45 Ratio; LDL Cholesterol,Calculated 84.6 mg/dL (0.0-131.0); VLDL Calculation 18.96 mg/dL (5.00-40.00)
== END | disposition home or self-care (01) ==
LOC: LABWHC1 10:15
PROVIDERS: ATTEND Family Medicine
DX: I10 Essential (primary) hypertension (principal); E78.5 Hyperlipidemia, unspecified; Z85.038 Personal history of other malignant neoplasm of large intestine
CPT/HCPCS: 36415; 80053; 80061; 84443; 85027

== ENCOUNTER → 2022-08-10 | Outpatient (CLI) | payer MEDICAID ==
[2022-08-10 15:08] LABS: HCT 41.5 % (37.2-46.3); HGB 13.6 g/dL (12.0-15.0); MCH 31.2 pg (27.0-32.0); MCHC 32.8 g/dL (32.0-37.0); MCV 95.2 fL (80.0-97.0); Mean Platelet Volume 10.9 fL (9.5-12.2); NRBC Per 100 WBC 0 /100 WBCS (0.0-0.0); Platelet Count 185 X 10*3/uL (140-440); RBC 4.36 X 10*6/uL (4.10-5.20); RDW 13.3 % (11.5-14.5); WBC 4.37 X 10*3/uL (4.50-10.00)
[2022-08-10 15:43] LABS: ALT 16 U/L (8-44); AST 22 U/L (13-35); African American GFR (CKD) 96.7 (60.0-200.0); Albumin 4.2 g/dL (3.8-4.9); Albumin/Globulin Ratio 1.95 (1.60-3.17); Alkaline Phosphatase 46 U/L (41-126); BUN/Creat Ratio 17.99 Ratio (12.00-20.00); Blood Urea Nitrogen 13.6 mg/dL (9.0-27.0); Calcium 9.7 mg/dL (8.7-10.3); Carbon Dioxide 28.1 mmol/L (20.0-27.5); Chloride 107 mmol/L (96-109); Chol/HDL Ratio 2.25 Ratio; Globulin 2.1 g/dL (1.6-3.3); Glucose 86 mg/dL (70-110); Non-African American GFR(CKD) 83.4 (60.0-200.0); Potassium 4.3 mmol/L (3.5-5.5); Sodium 143 mmol/L (135-145); Total Protein 6.3 g/dL (6.2-8.2); VLDL Calculation 9.16 mg/dL (5.00-40.00)
== END | disposition home or self-care (01) ==
LOC: LABWHC1 09:35
PROVIDERS: ATTEND Physician Assistant Medical
DX: I10 Essential (primary) hypertension (principal); E78.5 Hyperlipidemia, unspecified; R73.01 Impaired fasting glucose
CPT/HCPCS: 36415; 80053; 80061; 83036; 84443; 85027

== ENCOUNTER 2022-09-07 08:06 | Day surgery (SDC) | payer MEDICAID ==
[2022-09-07 08:44] VITALS: TEMP 97.9
[2022-09-07] MEDS ORDERED: PROPOFOL 10 MG/ML 20 ML VIAL IV ONE (08:45)
[2022-09-07] MEDS ORDERED: LACTATED RINGERS 1,000 ML IV ONE (08:46)
--- NOTE | 2022-09-07 09:01 | P.PCN ---
Date of Procedure: 09/07/22 Procedure(s) Performed: BRIEF HISTORY: Patient is a 62-year-old pleasant white female scheduled for an elective colonoscopy as a part of surveillance of prior history of colon cancer diagnosed in July 2019.. Last colonoscopy was in July 2020. PROCEDURE PERFORMED: Colonoscopy. PREOPERATIVE DIAGNOSIS: History of colon cancer diagnosed in July 2019 , status post sigmoid colon resection. IV sedation per Anesthesia. PROCEDURE: After informed consent was obtained, the patient, was brought into the endoscopy unit. IV sedation was administered by Anesthesia under continuous monitoring. Digital rectal examination was normal. Initially the Olympus CF-160 flexible video colonoscope was then inserted in the rectum, gradually advanced into the cecum without any difficulty. Careful examination was performed as the scope was gradually being withdrawn. Ileocecal valve and the appendiceal orifice were visualized and appeared normal. Prep was excellent. Mucosa of the cecum, ascending colon, transverse colon, descending colon, and rectum appeared normal. Anastomosis was located at 20 cm from anal was there appeared normal. Retroflexion was performed in the rectum and no lesions were seen. The patient tolerated the procedure well. IMPRESSION: Normal-appearing colon from rectum to cecum with no evidence of colorectal neoplasia. . RECOMMENDATIONS: Findings of this examination were discussed with the patient as well as her family. She was advised to have a repeat screening colonoscopy in 3 years..
[2022-09-07 09:18] VITALS: BP 135/98; PULSE 50; RESP 14
== END 2022-09-07 09:32 | disposition home or self-care (01) ==
LOC: ORWHC2ENDO 08:06
PROVIDERS: ATTEND Internal Medicine Gastroenterology
DX: Z12.11 Encounter for screening for malignant neoplasm of colon (principal); I10 Essential (primary) hypertension; E78.5 Hyperlipidemia, unspecified; G43.909 Migraine, unspecified, not intractable, without status migrainosus; Z85.038 Personal history of other malignant neoplasm of large intestine; Z87.890 Personal history of sex reassignment; Z79.899 Other long term (current) drug therapy
CPT/HCPCS: J2704; G0105; 45378

== ENCOUNTER → 2022-10-18 | Outpatient (CLI) | payer MEDICAID ==
--- NOTE | 2022-10-18 17:17 | CT ---
EXAMINATION TYPE: CT abdomen pelvis w con DATE OF EXAM: 10/18/2022 COMPARISON: 09/06/2021 INDICATION: Hx of colon CA, r/o mets. DLP: 499.40 mGycm, Automated exposure control for dose reduction was used. CONTRAST: 100 ml mL of Isovue 370. Study performed with Oral Contrast TECHNIQUE: Axial images were obtained from above the diaphragm to the pubic rami in the axial plane a t 5 mm thick sections. Reconstructed images are reviewed on the computer in the coronal plane. FINDINGS: Limited CT sections are obtained the lung bases. The lung bases are clear. CT ABDOMEN: Liver: There is a heterogenous area of peripheral enhancement within the posterior right lobe liver. This currently measures 6.3 x 5.4 cm is size similar to comparison. Differential diagnosis includes a large hemangioma. This is incomplete enhancement on delayed images which can be related to the size. A couple of small cysts remain present at the inferior anterolateral right lobe liver. Spleen: Normal Pancreas: Normal Adrenal glands: The adrenal glands are normal. Gallbladder: Normal Kidneys: No masses are evident. No hydronephrosis is present. No cysts are present. Delayed images were obtained through the kidneys, which remain unremarkable. Aorta: Vascular calcification is within the aorta. Inferior vena cava: Normal. CT PELVIS: Loops of bowel within the abdomen and pelvis are normal. There are loops of bowel which are incom pletely distended or lack oral contrast limiting their evaluation. Appendix: Normal as visualized. Urinary bladder: Normal. Genitourinary structures: Uterus appears within normal limits. Adnexa are unremarkable. Osseous structures: No suspicious lytic or sclerotic lesions. Some degenerative disc changes present L5-S1. Lower lumbar spine facet changes are present. IMPRESSIONS: 1. Essentially stable appearing large hemangioma posterior right lobe liver. 2. No suspicious changes to suggest metastatic colon cancer.
== END | disposition home or self-care (01) ==
LOC: RADCTMAIN 14:30
PROVIDERS: ATTEND Internal Medicine Hematology & Oncology
DX: C18.7 Malignant neoplasm of sigmoid colon (principal); D18.03 Hemangioma of intra-abdominal structures; E78.5 Hyperlipidemia, unspecified; I10 Essential (primary) hypertension; M81.0 Age-related osteoporosis without current pathological fracture
CPT/HCPCS: 74177; Q9967

== ENCOUNTER → 2022-11-29 | Outpatient (CLI) | payer MEDICAID ==
--- NOTE | 2022-11-29 10:43 | US ---
EXAMINATION TYPE: US duplex aorta DATE OF EXAM: 11/29/2022 COMPARISON: NONE CLINICAL INDICATION: Female, 62 years old with history of R68.89 ATHEROSCLEROSIS OF AORTA; Aorta calc ifications noted on recent CT TECHNIQUE: Multiple sonographic images of the abdominal aorta are obtained. FINDINGS: EXAM MEASUREMENTS: Abdominal Aorta: Proximal: 2.3 x 2.3cm Mid: 1.9 x 2.1cm Distal: 2.0 x 2.0cm Bifurcation: RT: 1.0 x 1.1cm LT: 1.1 x 1.0cm TIN POT OPERATOR NOTES: Calcifications noted throughout aorta. no evidence of AAA at this time IMPRESSION: No evidence for abdominal aortic aneurysm.
== END | disposition home or self-care (01) ==
LOC: RADUSWWP 10:14
PROVIDERS: ATTEND Family Medicine
DX: R68.89 Other general symptoms and signs (principal); I70.0 Atherosclerosis of aorta
CPT/HCPCS: 93979

== ENCOUNTER → 2023-02-04 | Outpatient (CLI) | payer MEDICAID ==
--- NOTE | 2023-02-09 12:04 | MM ---
Reason for Exam: Screening (asymptomatic). Last mammogram was performed 1 year(s) and 1 month(s) ago. Patient History: Menarche at age 10. First Full-Term at age 19. Postmenopausal. Patient has history of breast feeding. Risk Values: Alena 5 year model risk: 1.4%. NCI Lifetime model risk: 5.8%. Prior Study Comparison: 01/31/2018 Bilateral MG screening mammo w CAD - 2, [facility]. 02/13/2020 Bilateral MG 3D screening mammo w/cad, [facility]. 01/15/2022 Bilateral MG 3D screening mammo w/cad, [facility]. Tissue Density: The breast tissue is extremely dense which could obscure a lesion on mammography. Findings: Analyzed By CAD. There is no suspicious group of microcalcifications or new suspicious mass. Overall Assessment: Negative, BI-RAD 1 Management: Screening Mammogram of both breasts in [address] [facility] will attempt to contact patient to return for supplemental views and ultrasound if indicated. Patient should continue monthly self-breast exams. A clinical breast exam by your physician is recommended on an annual basis. This exam should not preclude additional follow-up of suspicious palpable abnormalities. Note on Alena scores and lifetime risk: 1. A Alena score greater than 3% is considered moderate risk. If this is the case, consider specialist referral to assess eligibility for a risk reducing agent. 2. If overall lifetime risk for the development of breast cancer is 20% or higher, the patient may qualify for future screening with alternating mammogram and breast MRI. Electronically signed and approved by: Brendon Davenport DO
== END | disposition home or self-care (01) ==
LOC: RADMAMWWP 15:22
PROVIDERS: ATTEND Family Medicine
DX: Z12.31 Encounter for screening mammogram for malignant neoplasm of breast (principal); Z78.0 Asymptomatic menopausal state
CPT/HCPCS: 77063; 77067

== ENCOUNTER → 2023-10-18 | Outpatient (CLI) | payer MEDICARE ==
[2023-10-18 12:26] LABS: African American GFR (CKD) >90 (>60 ml/min/1.73 sqM); Blood Urea Nitrogen 15 mg/dL (7-17); Non-African American GFR(CKD) >90 (>60 ml/min/1.73 sqM)
--- NOTE | 2023-10-18 15:11 | CT ---
EXAMINATION TYPE: CT abdomen pelvis w con DATE OF EXAM: 10/18/2023 COMPARISON: 10/18/2022 HISTORY: 63-year-old female C18.7 h/o sigmoid colon ca f/u TECHNIQUE: Contiguous axial scanning of the abdomen and pelvis following administration of 100 ml Iso serina 300 IV contrast. Delayed images through the kidneys and coronal/sagittal reconstructions perform ed. CT DLP: 1239 mGycm Automated exposure control for dose reduction was used. FINDINGS: Heart and lungs are normal in size without pericardial effusion. Lung bases clear without p leural effusion. Mass posterior right liver lobe extending to the right hepatic dome measures 6.2 x 5.0 cm in comparis on to 6.3 x 5.1 cm, previously. Overall not significantly changed. Patchy peripheral enhancement whic h matches the blood pool and with some fill-in on delayed scan. A couple benign hepatic cysts measure up to 1.2 cm and are also unchanged. Portal venous system is patent. No biliary ductal dilatation. Gallbladder, adrenal glands, kidneys, spleen, and pancreas within normal limits. No dilated small bowel, free fluid, or free air. No mesenteric or retroperitoneal. Normal appendix. Oral contrast progressed to the hepatic flexure of the colon. There is mild to moder ate stool. Staple line related to prior resection and anastomosis at the distal sigmoid colon. Mild atherosclerotic calcifications infrarenal abdominal aorta. Urine distended. Uterus retroverted. Ovaries not well delineated due to crowded structures. No abnorm al fluid collection in the pelvis or pelvic lymphadenopathy. Bones: Hypertrophic facet arthropathy lower lumbar spine. Trace grade 1 anterolisthesis L4-L5 and L5- S1. Moderate to advanced degenerative disc disease L5-S1. Chronic superior endplate Schmorl's node T1 1 vertebral body. IMPRESSION: 1. PREVIOUS RESECTION AND RE-ANASTOMOSIS AT THE DISTAL SIGMOID COLON. NO EVIDENCE FOR RECURRENT OR ME TASTATIC DISEASE. 2. STABLE LARGE 6.2 CM HEMANGIOMA RIGHT LIVER LOBE.
== END | disposition home or self-care (01) ==
LOC: RADCTMAIN 11:22
PROVIDERS: ATTEND Internal Medicine Hematology & Oncology
DX: C18.7 Malignant neoplasm of sigmoid colon (principal); D18.03 Hemangioma of intra-abdominal structures
CPT/HCPCS: 82565; 84520; 74177; 36415; Q9967

== ENCOUNTER → 2024-02-22 | Outpatient (CLI) | payer MEDICARE ==
--- NOTE | 2024-02-23 19:02 | MM ---
Reason for Exam: Screening (asymptomatic). Last mammogram was performed 1 year(s) and 1 month(s) ago. Patient History: Menarche at age 10. First Full-Term at age 19. Postmenopausal. Patient has history of breast feeding. Risk Values: Alena 5 year model risk: 1.5%. NCI Lifetime model risk: 5.6%. Prior Study Comparison: 02/13/2020 Bilateral MG 3D screening mammo w/cad, [facility]. 01/15/2022 Bilateral MG 3D screening mammo w/cad, [facility]. 02/04/2023 Bilateral MG 3D screening mammo w/cad, [facility]. Tissue Density: The breasts are heterogeneously dense, which may obscure small masses. Findings: Analyzed By CAD. There is no suspicious group of microcalcifications or new suspicious mass in either breast. Overall Assessment: Negative, BI-RAD 1 Management: Screening Mammogram of both breasts in 1 year. Patient should continue monthly self-breast exams. A clinical breast exam by your physician is recommended on an annual basis. This exam should not preclude additional follow-up of suspicious palpable abnormalities. Note on Alena scores and lifetime risk: 1. A Alena score greater than 3% is considered moderate risk. If this is the case, consider specialist referral to assess eligibility for a risk reducing agent. 2. If overall lifetime risk for the development of breast cancer is 20% or higher, the patient may qualify for future screening with alternating mammogram and breast MRI. [facility], , 02/23/2024 6:59 PM. Electronically signed and approved by: Kaushik Lazaro M.D. Radiologist
== END | disposition home or self-care (01) ==
LOC: RADMAMWWP 12:29
PROVIDERS: ATTEND Family Medicine
DX: Z12.31 Encounter for screening mammogram for malignant neoplasm of breast (principal); Z78.0 Asymptomatic menopausal state; R92.333 Mammographic heterogeneous density, bilateral breasts
CPT/HCPCS: 77063; 77067